=== PATIENT | female | born 1975 | race Caucasian/White ===

== ENCOUNTER 2019-07-15 15:10 | Outpatient (RCR) | payer OTHER, SELFPAY ==
--- NOTE | 2019-07-15 16:12 | PTOPEVAL ---
PHYSICAL THERAPY EVALUATION AND PLAN OF CARE Thank you for referring Jenniffer Cotto to [facility]. I recommend physical therapy for right shoulder pain and education for HEP 1x/week for 3 weeks. Please review, sign, date and return this plan of care KATY. I agree with and certify that the following plan of care is medically necessary. Referring Physician Date Attending Provider: SHELL,GIOVANNY CASINO SURVEILLANCE OFFICER Evaluation Outpatient Past Medical History Neurological History Hx Other Neurological Disorders Yes: neuropathy Cardiovascular History Hx Hypertension Yes Diagnosis right shoulder pain Onset 04/2019 Subjective Information jenniffer reports chronic pain in Query Text:As Reported By Patient/ her right shoulder from Family April 2019. She was standing and leaning over to reach into a cabinet and she started to fall and she grabbed the oven door and fell onto her right shoulder. The paramedics came but she refused to go to the hospital with them. She went to the hospital later that night and it was determined she had a sprained shoulder. After some time she continued to experience pain in the shoulder her MD sent her to PT . Reaching overhead is painful and she cannot lie on her right side due to pain. She cannot carry anything heavy in her right arm, even a 5lb potato bag. States she cannot get up from a lying down position without significant pain the right shoulder. Self Report Pain Assessment Right Shoulder(s) Reported Pain Level 0 Lowest Pain Intensity 0 Greatest Pain Intensity 8 Interventions Used By Clinicians Heat,Ice Pain Score Pain Score 0: Self Report Additional Pain Score Comments reports that she has no pain when at rest, but when she tries to reach overhead it is a 10/10 but she will not go to the emergency room because she has already been and there is nothing to be done Cervical and Lumbar ROM Cervical ROM Reason Not Measured
--- NOTE | 2019-07-20 15:53 | PCPTNOTE ---
Patient did not show up for scheduled appointment this date.
--- NOTE | 2019-07-27 16:01 | PCPTNOTE ---
Patient did not show up for scheduled appointment this date.
--- NOTE | 2019-08-03 15:53 | PCPTNOTE ---
Admitting Provider: Attending Provider: GIOVANNY GOFF, CATALINO Patient:Suma Cotto Date of :1975 Patient has not returned for any further treatments since 07/15/2019, therefore (he/she) will be discharged at this time. Patient?s initial visit was on 07/15/2019 15:15 and (he/she) had a total of visits. The goals have been (met, not met, partially met). Thank you for referring this patient to [facility]. Please review, sign, date and return this discharge summary KATY. I have been updated about the patient's current status and I agree with discharge from the above service at this time. Referring Physician Date
--- NOTE | 2019-08-03 15:53 | PCPTNOTE ---
Patient did not show up for scheduled appointment this date.
--- NOTE | 2019-08-03 15:53 | PCPTNOTE ---
PHYSICAL THERAPY DISCHARGE NOTE Attending Provider: GIOVANNY GOFF, CORPORATE COMPLIANCE OFFICER Patient:Suma Cotto Date of :1975 Patient has not returned for any further treatments since 07/15/2019, therefore she will be discharged at this time. Patient?s initial visit was on 07/15/2019 and had a total of 0 treatment visits. Suma was provided with a home exercise program at her initial evaluation. The goals have not been assessed as she has not returned for follow-up appointments. Thank you for referring this patient to [facility]. Please review, sign, date and return this discharge summary KATY. I have been updated about the patient's current status and I agree with discharge from the above service at this time. Referring Physician Date
== END 2019-08-04 09:21 | disposition home or self-care (01) ==
LOC: ANHPT 15:10
PROVIDERS: PCP Nurse Practitioner Family; Visit Provider Nurse Practitioner Family
DX: G89.29 Other chronic pain (principal); M25.511 Pain in right shoulder
CPT/HCPCS: 97161

== ENCOUNTER 2019-09-20 15:40 | Emergency (ER) | payer OTHER, SELFPAY ==
[2019-09-20 15:51] VITALS: BP 151/87; PULSE 90; RESP 16; TEMP 36.9; O2SAT 97
[2019-09-20 17:07] LABS: Add Urine Microscopic? YES; Appearance Urine Cloudy (Clear); Bacteria Urine 2+ /hpf; Bilirubin Urine Negative (Negative); Blood Urine 2+ (Negative); Color Urine Yellow (Yellow); Glucose Urine UA Negative (Negative); Ketones Urine Negative (Negative); Leukocyte Esterase Ur 3+ LEU/UL (Negative); Mucus Urine Rare /lpf; Nitrate Urine Positive (Negative); Protein Urine 1+ mg/dL (Negative); Specific Grav Ur 1.013 (1.001-1.035); Squamous Epithelial Cell Urine Occasional /hpf (Few); Urobilinogen Urine Negative mg/dL (<2.0); WBC Clumps Urine Present /HPF; WBC Urine >75 /hpf
--- NOTE | 2019-09-20 18:08 | ED.FEMALEGU ---
HPI - Female Genitourinary General Chief complaint: Urogenital-Female Stated complaint: frequent urination, something bulging Time Seen by Provider: 09/20/19 16:13 Source: patient Mode of arrival: ambulatory Limitations: no limitations History of Present Illness HPI Narrative: Patient presents to the emergency department for dysuria since this morning. Reports frequency and urgency. Reports history of prolapse for which she has seen a doctor over in [place] in the past. Reports she feels a bulge in her vagina again. Denies fever, abdominal pain, vomiting, or flank pain. Related Data Home Medications Medication Instructions Recorded Confirmed lisinopril 10 mg PO DAILY 02/19/19 Allergies Allergy/AdvReac Type Severity Reaction Status Date / Time codeine AdvReac Mild N/V Verified 09/20/19 15:50 hydrocodone AdvReac Unknown Nausea Verified 09/20/19 15:50 NSAIDS (Non-Steroidal AdvReac Unknown Nausea Verified 09/20/19 15:50 Anti-Inflamma CORTICOSTEROIDS AdvReac Unknown NAUSEA AND Uncoded 09/20/19 15:50 VOMITING Review of Systems Review of Systems: Narrative: CONSTITUTIONAL: Denies fever GASTROINTESTINAL: Denies abdominal pain, nausea, vomiting GENITOURINARY: Reports dysuria. Denies hematuria. All systems reviewed & are unremarkable except as noted in HPI and below PMFSH Social History Social History Smoking status: Never smoker Gender identity (if verbalized by the patient): Female Exam Narrative: Exam Narrative: GENERAL: Well-appearing, well-nourished, and in no acute distress. HEAD: Normocephalic, atraumatic. EYES: EOMI. CHEST: Clear to auscultation. No respiratory distress. No wheezes rales or rhonchi HEART: Regular rate and rhythm. No murmur heard. Normal peripheral pulses. ABDOMEN: Soft, nontender, nondistended, normal active bowel sounds. EXTREMITIES: Normal range of motion. No edema. SKIN: Warm, dry, no rash. NEURO: No focal deficits. Alert and oriented x3. PSYCH: Normal mood and affect PELVIC: Normal external genitalia. Mild bladder prolapse Course Vital Signs Vital signs: Vital Signs Temperature 98.4 F 09/20/19 15:51 Pulse Rate 90 09/20/19 15:51 Respiratory Rate 16 09/20/19 15:51 Blood Pressure 151/87 H 09/20/19 15:51 Pulse Oximetry 97 09/20/19 15:51 Temperature 98.4 F 09/20/19 15:51 Pulse Rate 90 09/20/19 15:51 Respiratory Rate 16 09/20/19 15:51 Blood Pressure 151/87 H 09/20/19 15:51 Pulse Oximetry 97 09/20/19 15:51 MDM - Female Genitourinary MDM Narrative Medical decision making narrative: Patient presents the emergency department for dysuria. She is afebrile and nontoxic-appearing. Denies any flank pain, abdominal pain or vomiting. UA with evidence of probable urinary tract infection. Patient will be started on oral antibiotic. Patient also reporting history of prolapse and that she started to have feelings of bulging again. Mild bladder prolapse on exam. Patient will be given urology for follow-up. Patient is stable and felt appropriate further outpatient evaluation. She was given warnings to return to the ER Lab Data Attestation: I reviewed the patient's lab results. Labs: Lab Results 09/20/19 Range/Units 16:58 Urine Color Yellow (Yellow) Urine Appearance Cloudy H (Clear) Urine pH 6.0 (5.0-9.0) Ur Specific [place] 1.013 (1.001-1.035) Urine Protein 1+ H (Negative) mg/dL Urine Glucose (UA) Negative (Negative) mg/dL Urine Ketones Negative (Negative) mg/dL Ur Blood (Man) 2+ H (Negative) Urine Nitrate Positive H (Negative) Urine Bilirubin Negative (Negative) Urine Urobilinogen Negative (<2.0) mg/dL Leukocyte Esterase Rfl 3+ H (Negative) CHIKIS/UL Urine RBC 11-20 H (0-2) /hpf Urine WBC >75 H /hpf Urine WBC Clumps Present H (None) /HPF Ur Squamous Epith Cells Occasional (Few) /hpf Urine Bacteria 2+ H /hpf Urine Mucus Rare /lpf
== END 2019-09-20 18:26 | disposition home or self-care (01) ==
PROVIDERS: Physician Assistant; Emergency Provider Emergency Medicine; PCP Nurse Practitioner Family
DX: N81.10 Cystocele, unspecified (principal); N30.00 Acute cystitis without hematuria
CPT/HCPCS: 81001; 87077; 87086; 87088; 87186; 99284

== ENCOUNTER 2019-10-26 14:13 | Emergency (ER) | payer OTHER, SELFPAY ==
[2019-10-26 14:36] VITALS: BP 137/88; PULSE 87; RESP 21; TEMP 37.2; O2SAT 97
[2019-10-26 14:42] VITALS: BP 125/83; PULSE 79; RESP 25; O2SAT 97
[2019-10-26 15:27] VITALS: BP 118/75; PULSE 84; RESP 20; O2SAT 99
--- NOTE | 2019-10-26 15:31 | ED.GENADULT ---
HPI - General Adult General Chief complaint: Wound/Laceration <Sushil Tello PA-C - Last Filed: 10/26/19 15:36> Stated complaint: rectal pain <KIRBY Mansfield Last Filed: 10/26/19 15:36> Time Seen by Provider: 10/26/19 14:27 <Sushil Tello PA-C - Last Filed: 10/26/19 15:36> Source: patient and family <KIRBY Mansfield Last Filed: 10/26/19 15:36> Mode of arrival: ambulatory <Sushil Tello PA-C - Last Filed: 10/26/19 15:36> Limitations: no limitations <Sushil Tello PA-C - Last Filed: 10/26/19 15:36> History of Present Illness HPI narrative: Patient is a 44-year-old female who presents to emergency department for evaluation of swelling of the rectum with some mild irritation and pain. Also notes some mild discomfort to the left ear but denies other URI symptoms. Denies similar occurrence in the past. Has not taken anything for her symptoms and presents in no distress <Sushil Tello PA-C - Last Filed: 10/26/19 15:36> Related Data Home medications: Home Medications Medication Instructions Recorded Confirmed lisinopril 10 mg PO DAILY 02/19/19 <Sushil Tello PA-C - Last Filed: 10/26/19 15:36> Allergies/adverse reactions: Allergies Allergy/AdvReac Type Severity Reaction Status Date / Time codeine AdvReac Mild N/V Verified 10/26/19 14:41 hydrocodone AdvReac Unknown Nausea Verified 10/26/19 14:41 NSAIDS (Non-Steroidal AdvReac Unknown Nausea Verified 10/26/19 14:41 Anti-Inflamma CORTICOSTEROIDS AdvReac Unknown NAUSEA AND Uncoded 10/26/19 14:41 VOMITING <Sushil Tello PA-C - Last Filed: 10/26/19 15:36> Review of Systems Review of Systems: All systems reviewed & are unremarkable except as noted in HPI and below <Sushil Tello PA-C - Last Filed: 10/26/19 15:36> PMFSH Past Medical History Medical History: Medical History Abnormal uterine bleeding DDD (degenerative disc disease) L-Spine Fibroid Hypertension Kidney failure Migraine <Sushil Tello PA-C - Last Filed: 10/26/19 15:36> Surgical History Surgical History: Surgical History H/O tubal ligation History of History of hysterectomy <Sushil Tello PA-C - Last Filed: 10/26/19 15:36> Social History Social History: Social History Smoking status: Never smoker Gender identity (if verbalized by the patient): Female Sexual Orientation (if Verbalized by the Patient): Straight or Heterosexual <Sushil Tello PA-C - Last Filed: 10/26/19 15:36> Exam Narrative: Exam Narrative: GENERAL: Well-appearing, well-nourished, and in no acute distress. HEAD: Normocephalic, atraumatic. EYES: PERRLA and EOMI. ENT: Nares clear, no rhinorrhea or epistaxis. Mucous membranes moist. Oropharynx without tonsillar hypertrophy exudate or other lesions. Bilateral TMs nonerythematous nonbulging NECK: Supple. No adenopathy or masses. CHEST: Clear to auscultation. No respiratory distress. No wheezes rales or rhonchi HEART: Regular rate and rhythm. No murmur heard. Normal peripheral pulses. ABDOMEN: Soft, nontender, nondistended EXTREMITIES: Normal range of motion. No edema. SKIN: Warm, dry, no rash. Small hemorrhoid at 12:00 no other abnormalities NEURO: No focal deficits. Alert and oriented x3. PSYCH: Normal mood and affect. <Sushil Tello PA-C - Last Filed: 10/26/19 15:36> Course Course Emergency Course: Patient in the room in no distress aware of case findings treatment plan and diagnosis <Sushil Tello PA-C - Last Filed: 10/26/19 15:36> Vital Signs Vital signs: Vital Signs Temperature 98.9 F 10/26/19 14:36 Pulse Rate 87 10/26/19 14:36 Respiratory Rate 21 H 10/26/19 14:36 Blood Pressure 137/88 10/26/19 14:36 Pulse O
[2019-10-26 16:14] VITALS: BP 118/75; PULSE 70; RESP 22; O2SAT 97
== END 2019-10-26 16:16 | disposition home or self-care (01) ==
PROVIDERS: Emergency Provider Emergency Medicine; PCP Physician Assistant
DX: K64.9 Unspecified hemorrhoids (principal); H92.02 Otalgia, left ear; I10 Essential (primary) hypertension; N19 Unspecified kidney failure
CPT/HCPCS: 99283

== ENCOUNTER 2019-12-02 22:55 | Emergency (ER) | payer OTHER, SELFPAY ==
--- NOTE | ~2019-12-02 | CT_ITS ---
EXAMINATION: CTA chest PE protocol DATE: 12/03/2019 04:12 INDICATION: Chest pain and shortness of breath TECHNIQUE: Computed tomography angiography (CTA) of the chest was performed with 100 mL Omnipaque-350 intravenous contrast timed to evaluate the pulmonary arteries. Coronal maximum intensity projection 3D-reconstructions were created by the technologist. The dose-length product (DLP) was 510.51 mGy-cm. Automated exposure control and iterative reconstruction technique were employed. COMPARISON: None. FINDINGS: The pulmonary arteries are well-opacified. No pulmonary embolism is identified. The lungs a re free of acute opacities. There is no pleural effusion or pneumothorax. No pathologically enlarged thoracic lymph nodes are identified. The heart size is normal. IMPRESSION: 1. No pulmonary embolism or acute cardiopulmonary abnormality. Reviewed, dictated and finalized at location A.
--- NOTE | ~2019-12-02 | XR_ITS ---
EXAMINATION: XR chest 1V portable INDICATION: Shortness of breath TECHNIQUE: Portable AP chest at 0132 hours COMPARISON: 04/25/2019 FINDINGS: The lungs are free of acute opacities. There is no pleural effusion or pneumothorax. The ca rdiomediastinal silhouette is normal. The visualized bones and soft tissues are unremarkable. IMPRESSION: 1. No acute cardiopulmonary abnormality. Reviewed, dictated and finalized at location A.
[2019-12-02 23:26] VITALS: BP 120/67; PULSE 65; RESP 20; TEMP 36.1; O2SAT 100
--- NOTE | 2019-12-03 01:07 | ECG_ITS ---
Measurements Intervals [place] Rate: 57 P: 13 [place]: 160 QRS: -7 QRSD: 97 T: -1 QT: 434 QTc: 423 Interpretive Statements SINUS BRADYCARDIA BORDERLINE ST-T WAVE ABNORMALITY- INF/HIGH LAT LEADS BASELINE ARTIFACT- I, III, AVF, V3 BORDERLINE ECG Electronically Signed On 12-03-2019 12:25:06 CDT by Benjamín Kolb D.O.
--- NOTE | 2019-12-03 01:07 | ED.GENADULT ---
HPI - General Adult General Chief complaint: Unspecified Stated complaint: worsening lower back pain, short of breath Time Seen by Provider: 12/03/19 00:52 Source: patient Mode of arrival: ambulatory Limitations: no limitations History of Present Illness HPI narrative: This patient is a 44 year old female who presents for evaluation of chest pain and palpitations. She states she has been having lower back pain for several days. She was evaluated at [place] [facility] 2 days ago, and she was started on steroids. She reports after starting steroid taper, she developed palpitations and left chest pain. She reports she feels like her heart is pounding and beating fast. She is having difficulty sleeping as well. She continues to have lower back pain that radiates to leg. Related Data Home Medications Medication Instructions Recorded Confirmed lisinopril 10 mg PO DAILY 02/19/19 Allergies Allergy/AdvReac Type Severity Reaction Status Date / Time codeine AdvReac Mild N/V Verified 10/26/19 14:41 hydrocodone AdvReac Unknown Nausea Verified 10/26/19 14:41 NSAIDS (Non-Steroidal AdvReac Unknown Nausea Verified 10/26/19 14:41 Anti-Inflamma CORTICOSTEROIDS AdvReac Unknown NAUSEA AND Uncoded 10/26/19 14:41 VOMITING Review of Systems Review of Systems: All systems reviewed & are unremarkable except as noted in HPI and below Constitutional: Constitutional: Denies chills and Denies fever(s) Cardiovascular: Cardiovascular: Reports chest pain and Reports rapid heart rate Respiratory: Respiratory: Denies cough, Reports dyspnea and Reports wheezing PMFSH Past Medical History Medical History Abnormal uterine bleeding DDD (degenerative disc disease) L-Spine Fibroid Hypertension Kidney failure Migraine Surgical History Surgical History H/O tubal ligation History of History of hysterectomy Social History Social History Smoking status: Never smoker Gender identity (if verbalized by the patient): Female Exam Narrative: Exam Narrative: GENERAL: Well-appearing, well-nourished, and in no acute distress. HEAD: Normocephalic, atraumatic EYES: PERRLA and EOMI, conjunctiva clear without discharge EARS: TM's clear bilaterally without erythema or dullness NOSE: Nares clear, no rhinorrhea or epistaxis THROAT:Mucous membranes moist, Oropharynx normal without erythema, exudate, peritonsillar swelling or fluctuance NECK: Supple, without lymphadenopathy or mass RESPIRATORY: No respiratory distress, Airway patent, Respirations non-labored, Clear to auscultation without rales, rhonchi or wheeze HEART: Regular rate and rhythm. No murmur heard. Normal peripheral pulses. ABDOMEN: Soft, nontender, nondistended, normal active bowel sounds. No masses. No rebound or guarding, No organomegaly. EXTREMITIES: No edema, normal strength with full range of motion. SKIN: Warm, dry, normal color without rash NEURO: Alert and oriented x3. CN 2-12 grossly intact. No focal deficits. PSYCH: Normal mood and affect. Course Reevaluation(s) Reevaluation #1: I Discussed with patient plan to perform CT to rule out PE. She denies any back or abdominal pain currently. Date: 12/03/19 Time: 03:30 Reevaluation #2: PAtient's symptoms are likely relate to her taking steroids. She will stop taking. Date: 12/03/19 Time: 04:41 Vital Signs Vital signs: Vital Signs Temperature 96.9 F L 12/02/19 23:26 Pulse Rate 65 12/02/19 23:26 Respiratory Rate 12/02/19 23:26 Blood Pressure 120/67 12/02/19 23:26 Pulse Oximetry 100 12/02/19 23:26 Temperature 98.2 F 12/03/19 04:54 Pulse Rate 89 12/03/19 04:54 Respiratory Rate 12/03/19 04:54 Blood Pressure 138/86 12/03/19 04:54 Pulse Oximetry 100 12/03/19 04:54 Medical Decision Making
[2019-12-03 02:13] LABS: Basophils Percent Auto 0.3 % (0.2-1.2); Eosinophils Absolute Auto 0.1 K/mm3 (0-0.3); Eosinophils Percent Auto 0.5 % (0-4.4); Hematocrit 41.7 % (37.0-47.0); Hemoglobin 13.9 g/dL (12.0-15.0); Immature Granulocyte Percent A 0.7 % (0-0.5); Lymphocytes Absolute Auto 5.68 K/mm3 (0.9-3.2); Lymphocytes Percent Auto 38.5 % (18.3-44.2); Mean Corpuscular HGB Conc 33.3 g/dl (32-36); Mean Corpuscular Hemoglobin 31.8 pg (26-34); Mean Corpuscular Volume 95.4 fl (80-100); Mean Platelet Volume 10.1 fl (7.4-10.4); Monocytes Absolute Auto 1.2 K/mm3 (0.1-0.6); Monocytes Percent Auto 7.9 % (2.6-8.5); Neutrophils Absolute Auto 7.7 K/mm3 (1.3-6.7); Neutrophils Percent Auto 52.1 % (45.5-73.1); Platelet Count Result 251 k/mm3 (150-375); Red Blood Count 4.37 M/mm3 (4.2-5.4); White Blood Count 14.8 K/mm3 (4.5-10.0)
[2019-12-03 02:23] LABS: Prothrombin Time 13.3 Seconds (11.1-14.7)
[2019-12-03 02:24] LABS: Partial Thromboplastin Time 27.6 SECONDS (22.3-36.8)
[2019-12-03 02:24] LABS: Alanine Aminotransferase 12 U/L (4-35); Albumin Level 3.7 g/dL (3.5-5.1); Alkaline Phosphatase 77 U/L (38-126); Anion Gap 7 mmol/L (8-16); Aspartate Amino Transferase 18 U/L (14-36); Bilirubin,Total 0.2 mg/dL (0.2-1.3); Blood Urea Nitrogen 22 mg/dL (7-17); Calcium 8.7 mg/dL (8.4-10.2); Carbon Dioxide 28 mmol/L (22-30); Chloride 105 mmol/L (98-107); Estimated CRCL calculation 59 ml/min; Estimated Glomerular Filt Rate 54; Glucose 107 mg/dL (65-105); Potassium 3.7 mmol/L (3.4-5.0); Sodium 140 mmol/L (137-145)
[2019-12-03 02:26] LABS: D Dimer 1.22 ug/mL (<0.48)
[2019-12-03 02:35] LABS: Troponin I < 0.012 ng/mL (0.000-0.034)
[2019-12-03 03:09] LABS: Add Urine Microscopic? NO; Appearance Urine Clear (Clear); Bilirubin Urine Negative (Negative); Blood Urine Negative (Negative); Color Urine Straw (Yellow); Glucose Urine UA Negative (Negative); Ketones Urine Negative (Negative); Leukocyte Esterase Ur Negative LEU/UL (Negative); Nitrate Urine Negative (Negative); Protein Urine Negative (Negative); Specific Grav Ur 1.011 (1.001-1.035); Urobilinogen Urine Negative mg/dL (<2.0)
[2019-12-03 03:17] VITALS: BP 135/88; PULSE 78; RESP 16; O2SAT 98
[2019-12-03 04:54] VITALS: BP 138/86; PULSE 89; RESP 20; TEMP 36.8; O2SAT 100
== END 2019-12-03 04:55 | disposition home or self-care (01) ==
PROVIDERS: Emergency Provider General Practice; PCP Family Medicine
DX: R07.89 Other chest pain (principal); R00.2 Palpitations; I10 Essential (primary) hypertension; R00.1 Bradycardia, unspecified; R94.31 Abnormal electrocardiogram [ECG] [EKG]
CPT/HCPCS: 36415; 71045; 71275; 80053; 81003; 83735; 84484; 85025; 85380; 85610; 85730; 93005; 99284; Q9967

== ENCOUNTER 2019-12-24 15:51 | Outpatient (CLI) | payer OTHER, SELFPAY ==
--- NOTE | ~2019-12-24 | XR_ITS ---
XR knee RT 3V 12/24/2019 16:26 Indication: Burning sensation the right knee Procedure: 3 views right knee Comparison: 02/25/2019 Findings: No fracture, subluxation or dislocation. No significant joint space narrowing. No joint eff usion. Impression: 1: No significant bone or joint abnormality. Reviewed, dictated and finalized at location A. Impression: 1: No significant bone or joint abnormality.
--- NOTE | ~2019-12-24 | XR_ITS ---
EXAMINATION: XR elbow RT min 3V DATE: 12/24/2019 16:25 INDICATION: Right elbow pain TECHNIQUE: Anteroposterior, two oblique and lateral views of the right elbow were obtained. COMPARISON: 11/22/2017 FINDINGS: Alignment is normal. No fracture or joint effusion. Joint spaces are normal. Soft tissues a re unremarkable. IMPRESSION: 1. No acute osseous abnormality. Reviewed, dictated and finalized at location A.
== END 2019-12-24 15:52 | disposition home or self-care (01) ==
PROVIDERS: PCP Family Medicine; Visit Provider Family Medicine
DX: M25.561 Pain in right knee (principal); M25.521 Pain in right elbow
CPT/HCPCS: 73080; 73562

== ENCOUNTER 2020-05-18 11:37 | Emergency (ER) | payer OTHER, SELFPAY ==
--- NOTE | ~2020-05-18 | XR_ITS ---
EXAMINATION: XR finger 1st RT min 2V DATE: 05/18/2020 12:32 INDICATION: Pain at the distal interphalangeal joint of the right thumb TECHNIQUE: Dorsal palmar, lateral and oblique views of the right first digit were obtained COMPARISON: None FINDINGS: Alignment is normal. No fracture. Joint spaces are relatively preserved. No erosions. Soft tissues ar e unremarkable. IMPRESSION: 1. Negative right thumb radiographs. Reviewed, dictated and finalized at location A. HEALTH ADMINISTRATOR
[2020-05-18 11:41] VITALS: BP 131/85; PULSE 101; RESP 18; TEMP 36.2; O2SAT 100
--- NOTE | 2020-05-18 13:07 | ED.UPPEXIN ---
HPI - Extremity Injury (Upper) General Chief Complaint: Extremity Injury, Upper Stated Complaint: finger injury Time Seen by Provider: 05/18/20 11:40 History of Present Illness HPI narrative: Patient is a 44-year-old female who presents to the ER with right thumb pain. Patient was by the shower when she slipped and fell. She got her hand crushed between the wall and the door of the shower. She has throbbing and burning pain to the finger and difficulty with range of motion of the DIP of the right first digit. Did not strike her head or lose consciousness. Related Data Home Medications Medication Instructions Recorded Confirmed lisinopril 10 mg PO DAILY 02/19/19 Allergies Allergy/AdvReac Type Severity Reaction Status Date / Time codeine AdvReac Mild N/V Verified 05/18/20 11:44 hydrocodone AdvReac Unknown Nausea Verified 05/18/20 11:44 NSAIDS (Non-Steroidal AdvReac Unknown Nausea Verified 05/18/20 11:44 Anti-Inflamma CORTICOSTEROIDS AdvReac Unknown NAUSEA AND Uncoded 10/26/19 14:41 VOMITING Review of Systems Musculoskeletal: Musculoskeletal: Denies back pain, Reports arthralgias and Denies joint swelling Neurologic: Denies focal weakness and Denies numbness PMFSH Past Medical History Medical History (Updated 05/18/20 @ 13:15 by Alberto Cary MD) Abnormal uterine bleeding DDD (degenerative disc disease) L-Spine Fibroid Hypertension Kidney failure Migraine Surgical History Surgical History H/O tubal ligation History of History of hysterectomy Social History Social History Smoking status: Never smoker Gender identity (if verbalized by the patient): Female Exam Narrative: Exam Narrative: GENERAL: Well-appearing, well-nourished, and in no acute distress. HEAD: Normocephalic, atraumatic. EXTREMITIES: Exam of the right hand reveals tenderness at the right first digit DIP. No swelling or bruising. Limited range of motion due to pain but flexion extension at that joint are intact. SKIN: Warm, dry, no rash. NEURO: Alert and oriented x3. PSYCH: Normal mood and affect. Course Vital Signs Vital signs: Vital Signs Temperature 97.2 F L 05/18/20 11:41 Pulse Rate 101 H 05/18/20 11:41 Respiratory Rate 18 05/18/20 11:41 Blood Pressure 131/85 05/18/20 11:41 Pulse Oximetry 100 05/18/20 11:41 Temperature 97.2 F L 05/18/20 11:41 Pulse Rate 101 H 05/18/20 11:41 Respiratory Rate 18 05/18/20 11:41 Blood Pressure 131/85 05/18/20 11:41 Pulse Oximetry 100 05/18/20 11:41 MDM - Extremity Injury (Upper) Imaging Data Radiologist's impression: ITS Impressions Finger X-Ray 05/18/20 12:36 IMPRESSION: 1. Negative right thumb radiographs. Discharge Plan Discharge Clinical Impression: Finger sprain Patient Disposition: Home, Self-Care Condition: Stable Instructions: Finger Sprain (ED) Additional Instructions: Return the ER if you have increased pain, you have new injury, or you have other concerns. Take Tylenol or ibuprofen as needed for pain at home. Prescriptions: No Action lisinopril 10 mg tablet 10 mg PO DAILY RF: 0 nitrofurantoin monohyd/m-cryst [Macrobid] 100 mg capsule 100 mg PO Q12H 5 Days Qty: 10 RF: 0 hydrocortisone acetate [Anusol-HC] 25 mg suppository 25 mg RECTAL BID Qty: 1 RF: 0 loratadine [Claritin] 10 mg tablet 10 mg PO DAILY PRN (Reason: allergy symptoms) Qty: 10 RF: 0 Follow-up/Referrals: Anayeli,Priyanka Bravo MD [Primary Care Provider] - 1 Week
== END 2020-05-18 13:43 | disposition home or self-care (01) ==
PROVIDERS: Emergency Provider Emergency Medicine; PCP Family Medicine
DX: S63.601A Unspecified sprain of right thumb, initial encounter (principal); I10 Essential (primary) hypertension; N19 Unspecified kidney failure; W18.2XXA Fall in (into) shower or empty bathtub, initial encounter
CPT/HCPCS: 73140; 99283

== ENCOUNTER 2020-05-27 14:44 | Emergency (ER) | payer OTHER, SELFPAY ==
--- NOTE | ~2020-05-27 | XR_ITS ---
EXAMINATION: XR scapula RT EXAM DATE: 05/27/2020 15:30 INDICATION: Pain to rt scapula after sneezing hit a dresser. Initial encounter. TECHNIQUE: Frontal and lateral projections of the right scapula Comparison is made to prior examinat ion from 04/25/2019. FINDINGS: There are no acute right scapula fractures or dislocations identified. There is no subcuta neous gas. The soft tissue is unremarkable. There are no radiopaque foreign bodies. IMPRESSION: 1. XR scapula RT exam without acute osseous findings. Reviewed, dictated and finalized at location B. TESTER
--- NOTE | 2020-05-27 15:18 | ED.GENADULT ---
HPI - General Adult General Chief complaint: Extremity Injury, Upper Stated complaint: Shoulder Pain Time Seen by Provider: 05/27/20 15:02 Source: patient and RN notes reviewed Mode of arrival: wheelchair Limitations: no limitations History of Present Illness HPI narrative: Patient presents today complaining of right shoulder pain. States she sneezed at home, lost her balance and fell backwards striking the back of her head and shoulder on a dresser before falling to the floor 2 days ago. Denies loss of consciousness at time of injury. Denies dizziness or vision changes. Denies numbness or tingling in the arm or hand. She currently rates her shoulder pain 9/10 and has been using Tylenol and icy hot without relief. Pain increases when she tries to lie down. States pain is worse today. She presents today requesting x-rays of her shoulder and prescription for pain medication. MD complaint: Right shoulder pain Related Data Home Medications Medication Instructions Recorded Confirmed lisinopril 10 mg PO DAILY 02/19/19 Allergies Allergy/AdvReac Type Severity Reaction Status Date / Time codeine AdvReac Mild N/V Verified 05/18/20 11:44 hydrocodone AdvReac Unknown Nausea Verified 05/18/20 11:44 NSAIDS (Non-Steroidal AdvReac Unknown Nausea Verified 05/18/20 11:44 Anti-Inflamma CORTICOSTEROIDS AdvReac Unknown NAUSEA AND Uncoded 10/26/19 14:41 VOMITING Review of Systems Review of Systems: Narrative: CONSTITUTIONAL: Denies body aches, fever, chills, or sweats. EYES: Denies visual changes, redness, or discharge. ENT: Denies rhinorrhea, congestion, sore throat, or otalgia. CARDIOVASCULAR: Denies chest pain, palpitations, or edema. RESPIRATORY: Denies cough or dyspnea. GASTROINTESTINAL: Denies abdominal pain, nausea, vomiting, or diarrhea. GENITOURINARY: Denies dysuria or hematuria. SKIN: Denies rash, itching, or wounds. MUSCULOSKELETAL: Denies back pain, or myalgia. + Right shoulder pain NEUROLOGIC: Denies headache, numbness, tingling, or weakness. PSYCH: Denies depression or anxiety. [facility] Past Medical History Medical History (Updated 05/27/20 @ 15:52 by Mena Oliver, TUBE SPLICER, BC) Abnormal uterine bleeding DDD (degenerative disc disease) L-Spine Fibroid Hypertension Kidney failure Migraine Surgical History Surgical History H/O tubal ligation History of History of hysterectomy Social History Social History Smoking status: Never smoker Gender identity (if verbalized by the patient): Female Comments At time of signature, I have reviewed and agree with nursing past medical, surgical, social and family history unless otherwise noted. Please see nursing chart for further information. There is no relevant family history pertinent to the presenting complaint Exam Narrative: Exam Narrative: GENERAL: Well-appearing, well-nourished, and in no acute distress. HEAD: Normocephalic, atraumatic. EYES: EOMI. No redness or drainage. Conjunctivae normal. ENT: Mucous membranes pink and moist. NECK: Normal AROM. Supple. No lymphadenopathy. Neck is nontender. CHEST: No respiratory distress. MUSCULOSKELETAL: No bony tenderness of the spine. Patient has right upper thoracic paraspinal/trapezius muscle tenderness. Patient has full range of motion of her right shoulder with increased pain to this affected area. No crepitus noted. No edema noted. Distal sensation intact. Capillary refill normal. Radial pulse normal. Handgrips equal and strong. No tenderness to the anterior or lateral shoulder. EXTREMITIES: Normal range of motion. No edema. SKIN: Warm, dry, no rash. Capillary refill normal. Normal skin turgor. NEURO: No focal deficits. Alert and oriented x3. Gait steady. PSYCH: Normal affect. No signs of depression or anxiety. Course Vital Signs Vital signs: Vital Signs Temper
[2020-05-27 15:39] VITALS: BP 131/75; PULSE 86; RESP 16; TEMP 36.5; O2SAT 100
== END 2020-05-27 15:55 | disposition home or self-care (01) ==
PROVIDERS: Emergency Provider Nurse Practitioner; PCP Family Medicine
DX: S46.811A Strain of other muscles, fascia and tendons at shoulder and upper arm level, right arm, initial encounter (principal); W19.XXXA Unspecified fall, initial encounter; M51.36 Other intervertebral disc degeneration, lumbar region; I10 Essential (primary) hypertension
CPT/HCPCS: 73010; 99213; G0463

== ENCOUNTER 2020-08-02 09:49 | Outpatient (CLI) | payer OTHER, SELFPAY ==
--- NOTE | ~2020-08-02 | XR_ITS ---
EXAMINATION: XR elbow RT min 3V DATE: 08/02/2020 10:13 INDICATION: Right elbow pain TECHNIQUE: Anteroposterior, two oblique and lateral views of the right elbow were obtained. COMPARISON: 12/24/2019 FINDINGS: Alignment is normal. No fracture or joint effusion. Mild nonuniform joint space narrowing at the ulno trochlear articulation with tiny marginal osteophytes. Soft tissues are unremarkable. IMPRESSION: 1. 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 Reviewed, dictated and finalized at location A.
== END 2020-08-02 09:50 | disposition home or self-care (01) ==
LOC: ANHIMG 09:51
PROVIDERS: PCP Family Medicine; Visit Provider Family Medicine
DX: M19.021 Primary osteoarthritis, right elbow (principal)
CPT/HCPCS: 73080

== ENCOUNTER 2020-09-10 15:42 | Emergency (ER) | payer OTHER, SELFPAY ==
[2020-09-10] VITALS (7 sets, daily range): BP systolic 105–127; BP diastolic 66–91; PULSE 80–104; RESP 18–25; TEMP 36.6; O2SAT 98–100
--- NOTE | ~2020-09-10 | CT_ITS ---
EXAMINATION: CT brain wo con DATE: 09/10/2020 18:33 INDICATION: Dizziness TECHNIQUE: Computed tomography (CT) of the head was performed without intravenous contrast. Sagittal and coronal reconstructions were performed. The mA was adjusted according to patient size. Iterative reconstruction technique was employed. The dose-length product was 605.33 mGy-cm. COMPARISON: head CT dated 02/25/2019 FINDINGS: No acute intracranial hemorrhage, acute infarction or abnormal extra axial fluid collection. Ventricl es are normal and symmetric. No mass/mass effect. The orbits, paranasal sinuses and mastoid air cells are normal. IMPRESSION: 1. Normal head CT. Reviewed, dictated and finalized at location A. IMPRESSION: 1. Normal head CT.
--- NOTE | ~2020-09-10 | XR_ITS ---
EXAMINATION: XR chest 2V DATE: 09/10/2020 18:47 INDICATION: Dizziness TECHNIQUE: frontal and lateral views of the chest were obtained. COMPARISON: Chest radiograph dated 12/03/2019 FINDINGS: The lungs remain clear with no focal airspace opacities, pulmonary edema, pleural effusion or pneumot horax. The cardiomediastinal silhouette is normal. Peripheral IV at the base of the left neck. Mild t horacic spondylosis. IMPRESSION: 1. No acute cardiopulmonary disease. Reviewed, dictated and finalized at location A.
--- NOTE | 2020-09-10 15:44 | ECG_ITS ---
Measurements Intervals Carmine Rate: 94 P: 16 MD: 155 QRS: -5 QRSD: 92 T: 18 QT: 348 QTc: 437 Interpretive Statements SINUS RHYTHM VOLTAGE CRITERIA FOR LVH BASELINE ARTIFACT- I, III, AVR, AVL, AVF, V4 BORDERLINE ECG Electronically Signed On 09-10-2020 20:02:55 CDT by Benjamín Kolb D.O.
--- NOTE | 2020-09-10 16:00 | PC.NURSE ---
Attempted blood draw x2 and unsuccessful.
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
[2020-09-10 18:31] LABS: Basophils Absolute Auto 0.1 K/mm3 (0.0-0.1); Basophils Percent Auto 0.4 % (0.2-1.2); Eosinophils Absolute Auto 0.2 K/mm3 (0-0.3); Eosinophils Percent Auto 1.1 % (0-4.4); Hematocrit 40.8 % (37.0-47.0); Hemoglobin 13.6 g/dL (12.0-15.0); Immature Granulocyte Absolute 0.06 K/mm3 (0.00-0.031); Immature Granulocyte Percent A 0.4 % (0-0.5); Lymphocytes Absolute Auto 3.68 K/mm3 (0.9-3.2); Lymphocytes Percent Auto 25.8 % (18.3-44.2); Mean Corpuscular HGB Conc 33.3 g/dl (32-36); Mean Corpuscular Hemoglobin 31.2 pg (26-34); Mean Corpuscular Volume 93.6 fl (80-100); Mean Platelet Volume 9.6 fl (7.4-10.4); Monocytes Absolute Auto 1.1 K/mm3 (0.1-0.6); Monocytes Percent Auto 7.6 % (2.6-8.5); Neutrophils Absolute Auto 9.2 K/mm3 (1.3-6.7); Neutrophils Percent Auto 64.7 % (45.5-73.1); Platelet Count Result 289 k/mm3 (150-375); Red Blood Count 4.36 M/mm3 (4.2-5.4); Red Cell Distribution Width 12.3 % (11.5-14.5); White Blood Count 14.3 K/mm3 (4.5-10.0)
[2020-09-10 18:42] LABS: Anion Gap 9 mmol/L (8-16); Blood Urea Nitrogen 9 mg/dL (7-17); Calcium 9.6 mg/dL (8.4-10.2); Carbon Dioxide 26 mmol/L (22-30); Chloride 107 mmol/L (98-107); Estimated CRCL calculation 65 ml/min; Estimated Glomerular Filt Rate 60; Glucose 103 mg/dL (65-105); Potassium 3.9 mmol/L (3.4-5.0); Sodium 142 mmol/L (137-145)
[2020-09-10 18:43] LABS: Alanine Aminotransferase 17 U/L (4-35); Albumin Level 4.1 g/dL (3.5-5.1); Alkaline Phosphatase 90 U/L (38-126); Anion Gap 9 mmol/L (8-16); Aspartate Amino Transferase 33 U/L (14-36); Bilirubin,Total 0.5 mg/dL (0.2-1.3); Blood Urea Nitrogen 10 mg/dL (7-17); Calcium 9.5 mg/dL (8.4-10.2); Carbon Dioxide 26 mmol/L (22-30); Chloride 107 mmol/L (98-107); Estimated CRCL calculation 72 ml/min; Estimated Glomerular Filt Rate > 60; Glucose 100 mg/dL (65-105); Potassium 4.2 mmol/L (3.4-5.0); Sodium 142 mmol/L (137-145)
[2020-09-10 18:51] LABS: Add Urine Microscopic? NO; Appearance Urine Clear (Clear); Bilirubin Urine Negative (Negative); Blood Urine Negative (Negative); Color Urine Colorless (Yellow); Glucose Urine UA Negative (Negative); Ketones Urine Negative (Negative); Leukocyte Esterase Ur Negative LEU/UL (Negative); Nitrate Urine Negative (Negative); Protein Urine Negative (Negative); Urobilinogen Urine Negative mg/dL (<2.0)
[2020-09-10 18:54] LABS: Troponin I < 0.012 ng/mL (0.000-0.034)
[2020-09-10 18:56] LABS: Specific Grav Ur 1.003 (1.001-1.035)
[2020-09-10 19:25] LABS: Thyroid Stimulating Hormone Reflex 0.718 uIU/mL (0.465-4.68)
[2020-09-10] MEDS: MECLIZINE HCL 25 MG TABLET PO (19:25)
[2020-09-10] MEDS: SODIUM CHLORIDE 0.9% IV 1,000 ML 999 ML IV CONT (19:25)
== END 2020-09-10 21:39 | disposition home or self-care (01) ==
PROVIDERS: Emergency Medicine; Emergency Provider Nurse Practitioner; PCP Family Medicine
DX: R42 Dizziness and giddiness (principal); I10 Essential (primary) hypertension; M51.36 Other intervertebral disc degeneration, lumbar region; R94.31 Abnormal electrocardiogram [ECG] [EKG]
CPT/HCPCS: 36415; 70450; 71046; 80048; 80053; 81003; 84443; 84484; 85025; 93005; 96360; 96361; 99284; A9270; J7030

== ENCOUNTER 2020-09-13 09:30 | Outpatient (RCR) | payer OTHER, SELFPAY ==
--- NOTE | 2020-08-31 10:15 | PTOPEVAL ---
Thank you for referring Suma Arroyo to [facility].? The patient is scheduled to be seen for therapy? 1 x/week for 6 weeks. Please review, sign, date and return this plan of care KATY. I agree with and certify that the following plan of care is medically necessary. Referring Physician Date Attending Provider: Priyanka Trevino, MD Assessment Status Evaluation Outpatient Past Medical History Neurological History Hx Other Neurological Disorders Yes: neuropathy, right LE Cardiovascular History Hx Hypertension Yes Genitourinary History Hx Renal Disease Yes: kidney failure Musculoskeletal History Hx Fibromyalgia Yes Hx Other Musculoskeletal Disorders Yes: stated has weak legs and uses w/c d/t faster to get around Evaluation Information Problem Diagnosis myalgia, neck and extrimity pain Onset 06/2020 Additional Evaluation Detail She was treated for right lateral epicondylitis back in June with 2 injections. Only the 1st injection helped her symptoms. She uses a wc for the past 6 yrs in the community. She uses a cane or walker in the house. She spends most of her day in bed, limited activities. She had a fall 05/22 landing backwards on shoulder/head region. Subjective Information She c/o arm pain and nerve Query Text:As Reported By Patient/ pain. She was given a tennis Family elbow splint, but it did not help. She reports increased pain in the morning or with activities. She has increased pain with reaching, carrying activities, bending the elbow. Any increased activity increase the elbow pain. She has difficulty with ADL's due to pain and limited right UE motion. Reports increased elbow pain with use of cane or walker. She has history of falls. Report numbness and tingling only in the lateral elbow region Diagnostic Tests X-Rays For This Problem Yes: Mild osteoart
--- NOTE | 2020-09-07 13:34 | PCPTNOTE ---
Patient called & cancelled scheduled appointment this date due to not felling well.
--- NOTE | 2020-09-20 11:18 | PCPTNOTE ---
Patient did not show up for scheduled appointment this date. Attempted to call, but pt's phone not accepting calls.
--- NOTE | 2020-10-13 08:11 | PCPTNOTE ---
Admitting Provider: Attending Provider: Priyanka Trevino, Patient:Suma Arroyo Date of :1975 Discharge Note Patient has not returned for any further treatments since 09/13/2020, therefore she will be discharged at this time. Patient?s initial visit was on 08/31/2020 09:00 and she had a total of 2 visits with 2 cancelled/no show visits. The goals have been not met at this time. Thank you for referring this patient to [facility]. Please review, sign, date and return this discharge summary KATY. I have been updated about the patient's current status and I agree with discharge from the above service at this time. Referring Physician Date
== END 2020-10-13 16:46 | disposition home or self-care (01) ==
LOC: ANHPT 09:30
PROVIDERS: PCP Family Medicine; Visit Provider Family Medicine
DX: M79.10 Myalgia, unspecified site (principal)
CPT/HCPCS: 97110; 97140; 97162

== ENCOUNTER 2021-02-14 12:30 | Outpatient (CLI) | payer OTHER, SELFPAY ==
--- NOTE | ~2021-02-14 | MR_ITS ---
EXAMINATION: MR elbow RT wo con DATE: 02/14/2021 13:54 INDICATION: Right elbow pain TECHNIQUE: Magnetic resonance imaging (MRI) of the right elbow was performed without intravenous cont rast. Sequences included coronal, axial, and sagittal PD-weighted FS FSE and coronal, axial, and sagi ttal PD-weighted FSE. COMPARISON: None FINDINGS: Osseous/other: Normal alignment. Normal marrow signal with no marrow edema, fracture, osteochondral lesion or abnor mal marrow replacing process. Mild osteoarthritis with mild partial-thickness cartilage loss resultin g in mild nonuniform joint space narrowing at the ulnotrochlear and proximal radioulnar articulations . No associated degenerative subchondral changes. Small marginal osteophytes along the trochlea. Tendons: Triceps, biceps brachii and brachialis tendons are normal. Common flexor tendon wad is normal. The c ommon extensor tendon wad is normal. Ligaments: The medial and lateral collateral ligament complexes are normal. Cubital tunnel: Cubital tunnel is unremarkable with normal signal and caliber of the ulnar nerve. Fluid: Physiologic amount of fluid the elbow joint. IMPRESSION: 1. 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 Reviewed, dictated and finalized at location A. ONAL GUIDE
== END 2021-02-14 12:31 | disposition home or self-care (01) ==
PROVIDERS: Visit Provider Orthopaedic Surgery
DX: M19.021 Primary osteoarthritis, right elbow (principal)
CPT/HCPCS: 73221

== ENCOUNTER 2021-06-10 18:12 | Emergency (ER) | payer OTHER, SELFPAY ==
--- NOTE | ~2021-06-10 | XR_ITS ---
EXAMINATION: XR ankle LT min 3V DATE: 06/10/2021 18:32 INDICATION: Lateral sided left ankle pain post fall TECHNIQUE: Anteroposterior, oblique, mortise, and lateral views of the left ankle were obtained. COMPARISON: None. FINDINGS: Alignment is normal. No fracture. Joint spaces are well maintained. No ankle joint effusion. The so ft tissues are unremarkable. IMPRESSION: 1. Negative left ankle radiographs. Reviewed, dictated and finalized at location A. 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
--- NOTE | ~2021-06-10 | XR_ITS ---
EXAMINATION: XR elbow RT min 3V DATE: 06/10/2021 18:33 INDICATION: Posterior right elbow pain post fall TECHNIQUE: Anteroposterior, two oblique and lateral views of the right elbow were obtained. COMPARISON: 02/06/2021 FINDINGS: Alignment is normal. No fracture or joint effusion. Joint spaces are normal. Soft tissues are unremar kable. IMPRESSION: 1. Negative right elbow radiographs. Reviewed, dictated and finalized at location A. 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
[2021-06-10 18:12] VITALS: BP 127/69; PULSE 98; RESP 17; TEMP 36.3; O2SAT 100
--- NOTE | 2021-06-10 18:26 | ED.FALL ---
HPI - Fall General Chief Complaint: Fall Stated Complaint: Ground level fall with ankle pain Time Seen by Provider: 06/10/21 18:26 Related Data Home Medications Medication Instructions Recorded Confirmed lisinopril 10 mg PO DAILY 02/19/19 02/27/21 tramadol 50 mg tablet 50 mg PO Q6H PRN 02/09/21 02/27/21 Allergies Allergy/AdvReac Type Severity Reaction Status Date / Time codeine AdvReac Mild N/V Verified 02/27/21 12:12 hydrocodone AdvReac Unknown Nausea Verified 02/27/21 12:12 NSAIDS (Non-Steroidal AdvReac Unknown Nausea Verified 02/27/21 12:12 Anti-Inflamma CORTICOSTEROIDS AdvReac Unknown NAUSEA AND Uncoded 02/27/21 12:12 VOMITING PMFSH Past Medical History Medical History Abnormal uterine bleeding DDD (degenerative disc disease) L-Spine Fibroid Hypertension Kidney failure Migraine Right elbow pain Surgical History Surgical History H/O tubal ligation History of History of hysterectomy Family History Family History Mother Diabetes mellitus Other Hypertension Social History Social History Alcohol intake: never Substance use: never Gender identity (if verbalized by the patient): Female Sexual Orientation (if Verbalized by the Patient): Straight or Heterosexual Spiritual care concerns: No Course Vital Signs Vital signs: Vital Signs Temperature 36.3 C L 06/10/21 18:12 Pulse Rate 98 06/10/21 18:12 Respiratory Rate 17 06/10/21 18:12 Blood Pressure 127/69 06/10/21 18:12 Pulse Oximetry 100 06/10/21 18:12 Temperature 36.3 C L 06/10/21 18:12 Pulse Rate 98 06/10/21 18:12 Respiratory Rate 17 06/10/21 18:12 Blood Pressure 127/69 06/10/21 18:12 Pulse Oximetry 100 06/10/21 18:12 Discharge Plan Discharge Clinical Impression: Contusion of elbow, right Qualifiers: Encounter type: initial encounter Qualified Code(s): S50.01XA - Contusion of right elbow, initial encounter Left ankle sprain Qualifiers: Encounter type: initial encounter Involved ligament of ankle: unspecified ligament Qualified Code(s): S93.402A - Sprain of unspecified ligament of left ankle, initial encounter Patient Disposition: Home, Self-Care Condition: Stable Instructions: Antibiotic Form Prescriptions: No Action cyclobenzaprine 10 mg tablet 10 mg PO TID PRN (Reason: muscle spasm) Qty: 15 RF: 0 methylprednisolone 4 mg tablets,dose pack 4 mg PO ONCE Qty: 21 RF: 0 lisinopril 10 mg tablet 10 mg PO DAILY RF: 0 meclizine 25 mg tablet 25 mg PO TID PRN (Reason: dizziness) Qty: 12 RF: 0 tramadol 50 mg tablet 50 mg PO Q6H PRNRF: 0 Follow-up/Referrals: Uriel,Priyanka Bravo MD [Primary Care Provider] - Time of Disposition: 19:13
--- NOTE | 2021-06-10 19:09 | ED.FALL ---
HPI - Fall General Chief Complaint: Fall Stated Complaint: Ground level fall with ankle pain Time Seen by Provider: 06/10/21 18:26 History of Present Illness HPI Narrative: 46-year-old female presents to the emergency room with multiple complaints. Patient states earlier today she slipped and fell striking her right elbow on a piece of furniture. Then later today she says she was cooking dinner she slipped on the kitchen rug twisting her left ankle. Patient was not ambulatory following the second injury. Patient normally uses a walker for ambulation. Related Data Home Medications Medication Instructions Recorded Confirmed lisinopril 10 mg PO DAILY 02/19/19 02/27/21 tramadol 50 mg tablet 50 mg PO Q6H PRN 02/09/21 02/27/21 Allergies Allergy/AdvReac Type Severity Reaction Status Date / Time codeine AdvReac Mild N/V Verified 02/27/21 12:12 hydrocodone AdvReac Unknown Nausea Verified 02/27/21 12:12 NSAIDS (Non-Steroidal AdvReac Unknown Nausea Verified 02/27/21 12:12 Anti-Inflamma CORTICOSTEROIDS AdvReac Unknown NAUSEA AND Uncoded 02/27/21 12:12 VOMITING Review of Systems Review of Systems: CONSTITUTIONAL: Denies fever, chills, or sweats. EYES: Denies visual changes, redness, or discharge. ENT: Denies rhinorrhea, congestion, sore throat, or otalgia. CARDIOVASCULAR: Denies chest pain, palpitations, or edema. RESPIRATORY: Denies cough or dyspnea. GASTROINTESTINAL: Denies abdominal pain, nausea, vomiting, or diarrhea. GENITOURINARY: Denies dysuria or hematuria. SKIN: Denies rash or itching. MUSCULOSKELETAL: Denies back pain, joint pain, or myalgia. NEUROLOGIC: Denies headache, numbness, dizziness, or weakness. PSYCHIATRIC: Denies anxiety or depression. [facility] Past Medical History Medical History Abnormal uterine bleeding DDD (degenerative disc disease) L-Spine Fibroid Hypertension Kidney failure Migraine Right elbow pain Surgical History Surgical History H/O tubal ligation History of History of hysterectomy Family History Family History Mother Diabetes mellitus Other Hypertension Social History Social History Alcohol intake: never Substance use: never Gender identity (if verbalized by the patient): Female Sexual Orientation (if Verbalized by the Patient): Straight or Heterosexual Spiritual care concerns: No Exam Narrative: GENERAL: Well-appearing, well-nourished, and in no acute distress. HEAD: Normocephalic, atraumatic. EYES: PERRLA and EOMI. ENT: Nares clear, no rhinorrhea or epistaxis. Mucous membranes moist. Oropharynx without tonsillar hypertrophy exudate or other lesions. Bilateral TMs pearly valente nonbulging NECK: Supple. No adenopathy or masses. No carotid bruits or JVD CHEST: Clear to auscultation. No respiratory distress. No wheezes rales or rhonchi HEART: Regular rate and rhythm. No murmur heard. Normal peripheral pulses. ABDOMEN: Soft, nontender, nondistended, normal active bowel sounds. EXTREMITIES: Normal range of motion. No edema. Right elbow: Tenderness to the olecranon process, no ecchymosis, no acute bony abnormality, full range of motion, neurovascular distally intact. Left ankle: Tenderness to the lateral malleolus, no soft tissue swelling, no ecchymosis, full range of motion SKIN: Warm, dry, no rash. NEURO: No focal deficits. Alert and oriented x3. PSYCH: Normal mood and affect. Course Vital Signs Vital signs: Vital Signs Temperature 36.3 C L 06/10/21 18:12 Pulse Rate 98 06/10/21 18:12 Respiratory Rate 17 06/10/21 18:12 Blood Pressure 127/69 06/10/21 18:12 Pulse Oximetry 100 06/10/21 18:12 Temperature 36.3 C L 06/10/21 18:12 Pulse Rate 98 06/10/21 18:12 Respiratory Rate 17 06/10/21 18:12 Bloo
== END 2021-06-10 19:35 | disposition home or self-care (01) ==
PROVIDERS: Emergency Provider Nurse Practitioner Family; PCP Family Medicine
DX: S93.402A Sprain of unspecified ligament of left ankle, initial encounter (principal); S50.01XA Contusion of right elbow, initial encounter; N19 Unspecified kidney failure; I10 Essential (primary) hypertension; W01.190A Fall on same level from slipping, tripping and stumbling with subsequent striking against furniture, initial encounter; X50.9XXA Other and unspecified overexertion or strenuous movements or postures, initial encounter
CPT/HCPCS: 73080; 73610; 99284

== ENCOUNTER 2021-06-26 09:41 | Emergency (ER) | payer OTHER, SELFPAY ==
--- NOTE | ~2021-06-26 | XR_ITS ---
EXAMINATION: XR lumbar spine 2-3V DATE: 06/26/2021 10:27 INDICATION: Low back pain. TECHNIQUE: 3 views of lumbar spine were obtained. COMPARISON: CT abdomen and pelvis 04/14/2010 FINDINGS: There is 7 degrees dextrocurvature of thoracolumbar spine. There are chronic bilateral L5 p ars defects. There is 5 mm anterolisthesis of L5 on S1. There is 1/5 height loss of L5 vertebral body , likely chronic. There is mildly decreased disc height at L3-L4 and L4-L5 and severely decreased dis c at L5-S1 with endplate remodeling. There is multilevel mild facet joint osteoarthritis. IMPRESSION: 1. Chronic bilateral L5 pars defects with grade 1 anterolisthesis of L5 on S1. 2. Severe lower lumbar spondylosis. Reviewed, dictated and finalized at location A.
[2021-06-26 09:53] VITALS: BP 122/97; PULSE 95; RESP 14; TEMP 36.6; O2SAT 99
--- NOTE | 2021-06-26 10:13 | ED.FALL ---
HPI - Fall General Chief Complaint: Fall Stated Complaint: fall, back pain Time Seen by Provider: 06/26/21 09:44 Source: patient History of Present Illness HPI Narrative: 46-year-old female presented to the emergency department for evaluation of lower back pain. Patient states she was attempting to unlock her car door when she fell straight backwards and injured her lower back. Patient does not suspect that she hit her head, patient had no loss of consciousness. Patient's primary complaint is lower back pain. Patient did take Tylenol prior to arrival and states that it helped but did not completely take the pain away. Patient denies any numbness or weakness. Related Data Home Medications Medication Instructions Recorded Confirmed lisinopril 10 mg PO DAILY 02/19/19 02/27/21 tramadol 50 mg tablet 50 mg PO Q6H PRN 02/09/21 02/27/21 fluoxetine mg 06/26/21 Allergies Allergy/AdvReac Type Severity Reaction Status Date / Time codeine AdvReac Mild N/V Verified 06/26/21 09:55 hydrocodone AdvReac Unknown Nausea Verified 06/26/21 09:55 NSAIDS (Non-Steroidal AdvReac Unknown Nausea Verified 06/26/21 09:55 Anti-Inflamma CORTICOSTEROIDS AdvReac Unknown NAUSEA AND Uncoded 06/26/21 09:55 VOMITING Review of Systems Review of Systems: CONSTITUTIONAL: Denies fever, chills, or sweats. EYES: Denies visual changes, redness, or discharge. ENT: Denies rhinorrhea, congestion, sore throat, or otalgia. CARDIOVASCULAR: Denies chest pain, palpitations, or edema. RESPIRATORY: Denies cough or dyspnea. GASTROINTESTINAL: Denies abdominal pain, nausea, vomiting, or diarrhea. GENITOURINARY: Denies dysuria or hematuria. SKIN: Denies rash or itching. MUSCULOSKELETAL: Low back pain NEUROLOGIC: Denies headache, numbness, or weakness. [facility] Past Medical History Medical History Abnormal uterine bleeding DDD (degenerative disc disease) L-Spine Fibroid Hypertension Kidney failure Migraine Right elbow pain Surgical History Surgical History H/O tubal ligation History of History of hysterectomy Family History Family History Mother Diabetes mellitus Other Hypertension Social History Social History Alcohol intake: never Substance use: never Gender identity (if verbalized by the patient): Female Sexual Orientation (if Verbalized by the Patient): Straight or Heterosexual Spiritual care concerns: No Exam Narrative: APPEARANCE: Well appearing, no pain, no distress, well-nourished. HEAD: normocephalic, atraumatic. EYES: PERRLA/EOMI, conjunctivae clear. NOSE: Normal no drainage NECK: Supple. No adenopathy, no masses. RESPIRATORY: Airway patent, respirations nonlabored. Clear to auscultation bilaterally, no rales, rhonchi, wheezing. CARDIOVASCULAR: Regular rate and rhythm without murmurs rubs or gallops. ABDOMINAL: Soft, nontender, nondistended, normal bowel sounds MUSCULOSKELETAL: Moves all extremities. Strength/ROM intact, No edema, No calf tenderness. Midline lumbar tenderness to palpation. No ecchymosis. No abrasions. No deformity or step-offs. NEURO: Alert. Cranial nerves II through XII intact. Grossly intact SKIN: Warm, dry. Normal Color Course Course Emergency Course: X-ray showed no acute fracture or dislocation. Patient was updated on the results of her imaging. Patient was encouraged to have close follow-up with her primary care physician. Vital Signs Vital signs: Vital Signs Temperature 97.9 F 06/26/21 09:53 Pulse Rate 95 06/26/21 09:53 Respiratory Rate 14 06/26/21 09:53 Blood Pressure 122/97 H 06/26/21 09:53 Pulse Oximetry 99 06/26/21 09:53 Temperature 97.9 F 06/26/21 09:53 Pulse Rate 95 06/26/21 09:53 Respiratory Rate 14 06/26/21 09:53 Blood Pres
[2021-06-26] MEDS: CYCLOBENZAPRINE HCL 10 MG TABLET PO (10:34)
== END 2021-06-26 11:14 | disposition home or self-care (01) ==
PROVIDERS: Emergency Provider Emergency Medicine
DX: S39.92XA Unspecified injury of lower back, initial encounter (principal); I10 Essential (primary) hypertension; N19 Unspecified kidney failure; W18.39XA Other fall on same level, initial encounter
CPT/HCPCS: 72100; 99283; A9270

== ENCOUNTER 2021-09-29 15:31 | Outpatient (CLI) | payer OTHER, SELFPAY ==
--- NOTE | ~2021-09-29 | XR_ITS ---
EXAMINATION: XR shoulder RT min 2V INDICATION: Right shoulder pain TECHNIQUE: Four views of the right shoulder are submitted. COMPARISON: 04/25/2019 FINDINGS: Normal alignment. No fracture. There is mild osteoarthritis of the acromioclavicular and gl enohumeral joints. Soft tissues are unremarkable. IMPRESSION: 1. No acute osseous abnormality. Reviewed, dictated and finalized at location F.
--- NOTE | ~2021-09-29 | XR_ITS ---
XR wrist RT min 3V DATE: 09/29/2021 16:14 INDICATION: Fall. Medial pain. TECHNIQUE: 4 views COMPARISON: 02/19/2019 right wrist FINDINGS: No fracture or dislocation, periosteal reaction or bone destruction, erosive change or ame dral calcinosis. IMPRESSION: Negative Reviewed, dictated and finalized at location A. IMPRESSION: Negative
--- NOTE | ~2021-09-29 | XR_ITS ---
EXAMINATION: XR clavicle RT INDICATION: Right shoulder pain TECHNIQUE: Two views of the right clavicle are obtained. COMPARISON: None available FINDINGS: There is no fracture, dislocation, or subluxation. There is mild osteoarthritis of the bashir ohumeral and acromioclavicular joints. IMPRESSION: 1. No acute osseous abnormality. Reviewed, dictated and finalized at location F.
== END 2021-09-29 15:32 | disposition home or self-care (01) ==
PROVIDERS: PCP Physician Assistant
DX: M25.511 Pain in right shoulder (principal); M25.531 Pain in right wrist
CPT/HCPCS: 73000; 73030; 73110

== ENCOUNTER 2021-11-21 08:52 | Emergency (ER) | payer OTHER, SELFPAY ==
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
[2021-11-21 08:51] VITALS: BP 134/84; PULSE 93; RESP 20; TEMP 37.1; O2SAT 96
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
[2021-11-21] MEDS: ORPHENADRINE CITRATE 100 MG TABLET.ER PO (09:35)
[2021-11-21] MEDS: traMADol HCL (*CRX) 50 MG TABLET PO (09:35)
[2021-11-21 11:21] VITALS: BP 122/74; PULSE 82; RESP 16; O2SAT 100
== END 2021-11-21 11:22 | disposition home or self-care (01) ==
PROVIDERS: Emergency Provider Nurse Practitioner Family; PCP Physician Assistant
DX: S16.1XXA Strain of muscle, fascia and tendon at neck level, initial encounter (principal); S39.012A Strain of muscle, fascia and tendon of lower back, initial encounter; S80.02XA Contusion of left knee, initial encounter; S80.01XA Contusion of right knee, initial encounter; I10 Essential (primary) hypertension; M17.0 Bilateral primary osteoarthritis of knee; M47.812 Spondylosis without myelopathy or radiculopathy, cervical region; M47.816 Spondylosis without myelopathy or radiculopathy, lumbar region; V43.52XA Car driver injured in collision with other type car in traffic accident, initial encounter
CPT/HCPCS: 72040; 72100; 73562; 99284; A9270

== ENCOUNTER 2021-12-15 17:33 | Emergency (ER) | payer OTHER, SELFPAY ==
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
[2021-12-15 17:41] VITALS: BP 145/83; PULSE 97; RESP 16; O2SAT 100
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
[2021-12-15] MEDS: ACETAMINOPHEN 325 MG TABLET 650 MG PO (19:03)
--- NOTE | 2021-12-15 19:13 | PC.NURSE ---
Patient report received from LE Mendoza. Assumed care of patient at this time.
[2021-12-15 19:42] VITALS: BP 133/84; PULSE 93; RESP 20; O2SAT 98
== END 2021-12-15 19:44 | disposition home or self-care (01) ==
PROVIDERS: Emergency Provider Emergency Medicine; PCP Physician Assistant
DX: S00.01XA Abrasion of scalp, initial encounter (principal); G62.9 Polyneuropathy, unspecified; I10 Essential (primary) hypertension; N19 Unspecified kidney failure; Z90.710 Acquired absence of both cervix and uterus; W18.39XA Other fall on same level, initial encounter
CPT/HCPCS: 70450; 99284; A9270

== ENCOUNTER 2022-01-16 06:26 | Outpatient (RCR) | payer OTHER, SELFPAY | END 2022-04-03 12:39 | disposition home or self-care (01) | LOC: ANHPT 06:26 | PROVIDERS: PCP Physician Assistant; Visit Provider Physician Assistant | DX: G83.11 Monoplegia of lower limb affecting right dominant side (principal) | CPT/HCPCS: 99199 ==

== ENCOUNTER 2022-04-04 14:55 | Emergency (ER) | payer OTHER, SELFPAY ==
[2022-04-04 15:09] VITALS: BP 126/82; PULSE 91; RESP 18; TEMP 36.3; O2SAT 99
--- NOTE | 2022-04-04 18:55 | PC.NURSE ---
pt called for room x3 , pt not in lobby.
== END 2022-04-04 19:05 | disposition left against medical advice (07) ==
LOC: ANHED 19:04
PROVIDERS: PCP Physician Assistant
DX: R42 Dizziness and giddiness (principal)
CPT/HCPCS: 99199

== ENCOUNTER 2022-06-28 09:14 | Emergency (ER) | payer OTHER, SELFPAY ==
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
--- NOTE | ~2022-06-28 | XR_ITS ---
EXAMINATION: XR thoracic spine 3V DATE: 06/28/2022 10:28 INDICATION: Upper back pain. Right rib pain. Fall. TECHNIQUE: 3 views of thoracic spine were obtained. COMPARISON: None. FINDINGS: There is 6 degrees levocurvature of lower thoracic spine. Vertebral body heights are normal . There is mildly decreased disc height at multiple levels in mid thoracic spine. There are endplate osteophytes at many levels. IMPRESSION: 1. Mild thoracic spondylosis. Reviewed, dictated and finalized at location A.
[2022-06-28 09:33] VITALS: BP 150/88; PULSE 90; RESP 18; TEMP 36.7; O2SAT 99
--- NOTE | 2022-06-28 09:47 | ED.FALL ---
HPI - Fall General Chief Complaint: Fall Stated Complaint: fall - back pain Time Seen by Provider: 06/28/22 09:31 History of Present Illness HPI Narrative: 47-year-old female presents to the emergency room for injury sustained in a ground-level mechanical fall on Saturday. Patient states she has fallen twice over the past week, both occasions landing on the same spot on her right upper back. Most recently she slipped while outside landing on her back. Patient states that she has pain just below her right shoulder blade. Pain is worse with movement and with inspiration. Has been taking Tylenol with no relief of symptoms. Related Data Home Medications Medication Instructions Recorded Confirmed lisinopril 10 mg tablet 10 mg PO DAILY 02/19/19 02/27/21 tramadol 50 mg tablet 50 mg PO Q6H PRN 02/09/21 02/27/21 fluoxetine 20 mg tablet mg 06/26/21 Allergies Allergy/AdvReac Type Severity Reaction Status Date / Time codeine AdvReac Mild N/V Verified 04/04/22 15:09 hydrocodone AdvReac Unknown Nausea Verified 04/04/22 15:09 NSAIDS (Non-Steroidal AdvReac Unknown Nausea Verified 04/04/22 15:09 Anti-Inflamma CORTICOSTEROIDS AdvReac Unknown NAUSEA AND Uncoded 06/26/21 09:55 VOMITING Review of Systems Review of Systems: CONSTITUTIONAL: Denies fever, chills, or sweats. EYES: Denies visual changes, redness, or discharge. ENT: Denies rhinorrhea, congestion, sore throat, or otalgia. CARDIOVASCULAR: Denies chest pain, palpitations, or edema. RESPIRATORY: Denies cough or dyspnea. GASTROINTESTINAL: Denies abdominal pain, nausea, vomiting, or diarrhea. GENITOURINARY: Denies dysuria or hematuria. SKIN: Denies rash or itching. MUSCULOSKELETAL: Denies back pain, joint pain, or myalgia. NEUROLOGIC: Denies headache, numbness, dizziness, or weakness. PSYCHIATRIC: Denies anxiety or depression. [facility] Past Medical History Medical History Abnormal uterine bleeding DDD (degenerative disc disease) L-Spine Fibroid Hypertension Kidney failure Migraine Right elbow pain Surgical History Surgical History H/O tubal ligation History of History of hysterectomy Family History Family History Mother Diabetes mellitus Other Hypertension Social History Social History Alcohol intake: never Substance use: never Living arrangements: with family Occupation/Education: unemployed Gender identity (if verbalized by the patient): Female Sexual Orientation (if Verbalized by the Patient): Straight or Heterosexual Spiritual care concerns: No Exam Narrative: GENERAL: Well-appearing, well-nourished, no physical limitations, and in no acute distress. HEAD: Normocephalic, atraumatic. EYES: Conjunctivae normal, PERRLA and EOMI. CHEST: Clear to auscultation. No respiratory distress. No wheezes rales or rhonchi. No tenderness. HEART: Regular rate and rhythm. No murmur heard. Normal peripheral pulses. ABDOMEN: Soft, nontender, nondistended, normal active bowel sounds. BACK: No cervical/thoracic/lumbar tenderness, step-offs, bony abnormality; FROM. +TTP with ecchymosis to right upper thoracic region. No STS. No evidence of flail chest EXTREMITIES: Normal range of motion. No edema. No clubbing or cyanosis SKIN: Warm, dry, no rash. No noted wounds NEURO: No focal deficits. Alert and oriented x3. MAEW. CN's II-XI intact bilaterally, normal gait PSYCH: Cooperative. Normal mood and affect. Course Vital Signs Vital signs: Vital Signs Temperature 36.7 C 06/28/22 09:33 Pulse Rate 90 06/28/22 09:33 Respiratory Rate 18 06/28/22 09:33 Blood Pressure 150/88 H 06/28/22 09:33 Pulse Oximetry 99 06/28/22 09:33 Oxygen Delivery Room Air 06/28/22 09:33 Temperature 36.7 C 06/28/22 09:33 Pul
[2022-06-28 10:58] VITALS: BP 134/83; PULSE 78; RESP 16; O2SAT 98
== END 2022-06-28 11:00 | disposition home or self-care (01) ==
PROVIDERS: Emergency Provider Nurse Practitioner Family; PCP Physician Assistant
DX: S20.221A Contusion of right back wall of thorax, initial encounter (principal); I10 Essential (primary) hypertension; Z90.710 Acquired absence of both cervix and uterus; M47.814 Spondylosis without myelopathy or radiculopathy, thoracic region; W01.0XXA Fall on same level from slipping, tripping and stumbling without subsequent striking against object, initial encounter
CPT/HCPCS: 71046; 71100; 72072; 99283; 99284

== ENCOUNTER 2022-09-17 15:33 | Emergency (ER) | payer OTHER, SELFPAY ==
[2022-09-17 15:41] VITALS: BP 113/70; PULSE 86; RESP 16; TEMP 36.4; O2SAT 100
--- NOTE | 2022-09-17 17:28 | PC.NURSE ---
Patient called to place into exam room 17 with no response.
--- NOTE | 2022-09-17 17:46 | PC.NURSE ---
Patient called for second time to place in exam room.
--- NOTE | 2022-09-17 18:29 | PC.NURSE ---
Attempted to place patient into exam room. patient did not respond for the third time. Assumed to have left without being seen after triage.
== END 2022-09-17 18:40 | disposition left against medical advice (07) ==
LOC: ANHED 18:34
PROVIDERS: PCP Physician Assistant
DX: M54.2 Cervicalgia (principal)
CPT/HCPCS: 99199

== ENCOUNTER 2022-09-17 23:51 | Emergency (ER) | payer OTHER, SELFPAY ==
[2022-09-17 23:55] VITALS: BP 114/90; PULSE 108; RESP 18; TEMP 36.7; O2SAT 98
[2022-09-18 01:27] VITALS: BP 136/86; PULSE 113; RESP 15; TEMP 36.4; O2SAT 100
--- NOTE | 2022-09-18 02:22 | ED.NECK ---
HPI - Neck Pain/Injury General Chief Complaint: Neck Pain/Injury Stated Complaint: neck pain Time Seen by Provider: 09/18/22 01:36 History of Present Illness HPI Narrative: This is a 47-year-old female with past history of peripheral neuropathy, who presents the emergency department complaining of right-sided neck pain for the past 2 to 3 days. The patient states she has bad pillows at home and has noted right neck spasm and soreness, rated 7/10 this is associated with some paresthesias of the right arm but no weakness. She has no other complaints today. Related Data Home Medications Medication Instructions Recorded Confirmed lisinopril 10 mg tablet 10 mg PO DAILY 02/19/19 02/27/21 tramadol 50 mg tablet 50 mg PO Q6H PRN 02/09/21 02/27/21 fluoxetine 20 mg tablet mg 06/26/21 Allergies Allergy/AdvReac Type Severity Reaction Status Date / Time codeine AdvReac Mild N/V Verified 09/17/22 15:34 hydrocodone AdvReac Unknown Nausea Verified 09/17/22 15:34 NSAIDS (Non-Steroidal AdvReac Unknown Nausea Verified 09/17/22 15:34 Anti-Inflamma CORTICOSTEROIDS AdvReac Unknown NAUSEA AND Uncoded 09/17/22 15:34 VOMITING Review of Systems Review of Systems: CONSTITUTIONAL: Denies fever, chills, or sweats.. CARDIOVASCULAR: Denies chest pain, palpitations, or edema. RESPIRATORY: Denies cough or dyspnea. GASTROINTESTINAL: Denies abdominal pain, nausea, vomiting, or diarrhea. GENITOURINARY: Denies dysuria or hematuria. SKIN: Denies rash or itching. MUSCULOSKELETAL: Right-sided neck pain, chronic right knee pain denies back pain, or myalgia. NEUROLOGIC: Paresthesias of the right arm denies headache, numbness, dizziness, or weakness. PSYCHIATRIC: Denies anxiety or depression. [facility] Past Medical History Medical History Abnormal uterine bleeding DDD (degenerative disc disease) L-Spine Fibroid Hypertension Kidney failure Migraine Right elbow pain Surgical History Surgical History H/O tubal ligation History of History of hysterectomy Family History Family History Mother Diabetes mellitus Other Hypertension Social History Social History Alcohol intake: never Substance use: never Living arrangements: with family Occupation/Education: unemployed Gender identity (if verbalized by the patient): Female Sexual Orientation (if Verbalized by the Patient): Straight or Heterosexual Spiritual care concerns: No Exam Narrative: GENERAL: Well-developed, well-nourished, appears uncomfortable HEAD: Normocephalic, atraumatic. EYES: PERRLA and EOMI. ENT: Nares clear, no rhinorrhea or epistaxis. Mucous membranes moist. Oropharynx without tonsillar hypertrophy exudate or other lesions. NECK: Muscle spasm of the right paraspinal muscles and right trapezius. No adenopathy or masses. No carotid bruits or JVD. No midline spine tenderness to palpation, no step-off or crepitus CHEST: Clear to auscultation. No respiratory distress. No wheezes rales or rhonchi HEART: Regular rate and rhythm. No murmur heard. Normal peripheral pulses. ABDOMEN: Soft, nontender, nondistended, normal active bowel sounds. EXTREMITIES: Normal range of motion. No edema. NEURO: No focal deficits. Alert and oriented x3. Strength 5/5 in all extremities, sensation intact bilaterally PSYCH: Normal mood and affect. Course Course Emergency Course: 03:08 - On reevaluation, patient states her pain is somewhat improved. Will discharge with muscle relaxers, lidocaine patches and recommendations for follow-up with her primary care doctor. Discussed return and emergency precautions including signs/symptoms of focal neural deficit and airway compromise. The patient voiced understanding and is comfortable with th
[2022-09-18] MEDS: ONDANSETRON HCL ODT 4 MG TABLET PO (02:34)
[2022-09-18] MEDS: CYCLOBENZAPRINE HCL 10 MG TABLET PO (02:34)
[2022-09-18] MEDS: KETOROLAC 30 MG/ML VIAL (*BKC) IM (02:34)
[2022-09-18 03:31] VITALS: BP 123/83; PULSE 100; RESP 14; TEMP 36.6; O2SAT 99
== END 2022-09-18 03:32 | disposition home or self-care (01) ==
PROVIDERS: Emergency Provider Preventive Medicine Aerospace Medicine; PCP Physician Assistant
DX: M54.12 Radiculopathy, cervical region (principal); M62.838 Other muscle spasm; I10 Essential (primary) hypertension; N19 Unspecified kidney failure; Z90.710 Acquired absence of both cervix and uterus
CPT/HCPCS: 96372; 99283; A9270; J1885

== ENCOUNTER 2022-12-09 00:10 | Emergency (ER) | payer OTHER, SELFPAY ==
--- NOTE | ~2022-12-09 | XR_ITS ---
XR chest 2V DATE: 12/09/2022 00:36 INDICATION: Cough TECHNIQUE: PA and lateral views COMPARISON: 06/28/2022 PA and lateral chest FINDINGS: Normal heart size. No hilar or mediastinal enlargement. No pulmonary infiltrate or consolid ation, pleural effusion or pulmonary vascular congestion or pneumothorax. IMPRESSION: No active cardiopulmonary disease Reviewed, dictated and finalized at location A.
[2022-12-09 00:14] VITALS: BP 129/71; PULSE 104; RESP 18; TEMP 36.3; O2SAT 99
[2022-12-09] MEDS: predniSONE 20 MG TABLET 40 MG PO (01:26)
[2022-12-09] MEDS: traMADol HCL (*CRX) 50 MG TABLET PO (01:27)
[2022-12-09] MEDS: IBUPROFEN 600 MG TABLET PO (01:28)
[2022-12-09] MEDS: BENZONATATE 100 MG CAPSULE PO (01:28)
[2022-12-09] MEDS: ALBUTEROL SULFATE NEB 2.5 MG/3 ML INH INHALATION (01:32)
[2022-12-09 01:34] VITALS: PULSE 94; RESP 20
[2022-12-09 01:42] VITALS: PULSE 96; RESP 22
[2022-12-09 01:44] VITALS: BP 136/79; PULSE 91; RESP 21; O2SAT 100
--- NOTE | 2022-12-09 01:53 | ED.GENADULT ---
HPI - General Adult General Chief complaint: Unspecified Stated complaint: cough, left arm pain Time Seen by Provider: 12/09/22 01:12 History of Present Illness HPI narrative: Patient presents to the emergency department from home with her family. Complaint of persistent cough for the past 5 days she is coughing so hard she has posttussive emesis. Denies shortness of breath or chest pain. Denies history of asthma or COPD. Taking [id number] cough medications without improvement of her cough. Also complaining of posterior left arm pain. States that her deltoid area is very tender and request something to make the muscle relax . Denies weakness or numbness to her extremities. Denies neck pain. Denies fevers and chills. Patient is very pleasant and her exam is grossly benign Related Data Home Medications Medication Instructions Recorded Confirmed lisinopril 10 mg tablet 10 mg PO DAILY 02/19/19 11/08/22 Allergies Allergy/AdvReac Type Severity Reaction Status Date / Time codeine AdvReac Mild N/V Verified 12/09/22 00:11 hydrocodone AdvReac Unknown Nausea Verified 12/09/22 00:11 NSAIDS (Non-Steroidal AdvReac Unknown Nausea Verified 12/09/22 00:11 Anti-Inflamma CORTICOSTEROIDS AdvReac Unknown NAUSEA AND Uncoded 12/09/22 00:11 VOMITING Review of Systems Review of Systems: review of systems negative except for what is documented in the [facility] Past Medical History Medical History (Updated 12/09/22 @ 02:03 by Maria Guadalupe Linda MD) Abnormal uterine bleeding DDD (degenerative disc disease) L-Spine Fibroid Hx of ovarian cancer hysterectomy with oophorectomy in 2003 Hypertension Kidney failure Migraine Right elbow pain Surgical History Surgical History (Updated 11/08/22 @ 15:49 by Fanta Lopez APRN) H/O tubal ligation History of History of hysterectomy hx of oviarian cancer in 2003 Family History Family History Mother Diabetes mellitus Other Hypertension Social History Social History (Updated 11/08/22 @ 16:03 by Scottie Gaffney MA) Smoking status: Never smoker Alcohol intake: never Substance use: never Lack of Transportation: No Lack of Food: Sometimes True Current Housing: I Have Housing Concerned About Future Housing: YES Difficulty Paying Gas/Electric Bills: YES Difficulty Paying for Meds: No Currently Unemployed: No Education: High School Diploma/GED Difficulty w/ Childcare or Family Care: No Living arrangements: with family Occupation/Education: unemployed Gender identity (if verbalized by the patient): Female Sexual Orientation (if Verbalized by the Patient): Straight or Heterosexual Spiritual care concerns: No Exam Narrative: GENERAL: Well-appearing, well-nourished, and in no acute distress. HEAD: Normocephalic, atraumatic. EYES: PERRLA and EOMI. ENT: Nares clear, no rhinorrhea or epistaxis. Mucous membranes moist. NECK: Supple. CHEST: Clear to auscultation. No respiratory distress. HEART: Regular rate and rhythm. ABDOMEN: Soft, nontender, nondistended. EXTREMITIES: Normal range of motion. No edema. Focal triceps muscle tenderness left upper arm SKIN: Warm, dry, no rash. NEURO: No focal deficits. Alert and oriented x3. PSYCH: Normal mood and affect. Course Course Emergency Course: Persistent cough. Vital signs stable no hypoxemia. Vital Signs Vital signs: Vital Signs Temperature 36.3 C L 12/09/22 00:14 Pulse Rate 104 H 12/09/22 00:14 Respiratory Rate 18 12/09/22 00:14 Blood Pressure 129/71 12/09/22 00:14 Pulse Oximetry 99 12/09/22 00:14 Oxygen Delivery Room Air 12/09/22 00:14 Temperature 36.3 C L 12/09/22 00:14 Pulse Rate 91 12/09/22 01:44 Respiratory Rate 21 H 12/09/22 01:44 Blood Pressure 136/79 12/09/22 01:44 Pulse Oximetry 100 12/09/22 01:44 Oxygen Delivery Room Air 12/09/22 00:
[2022-12-09 04:12] VITALS: BP 118/82
== END 2022-12-09 04:12 | disposition home or self-care (01) ==
PROVIDERS: Emergency Provider Emergency Medicine; PCP Family Medicine
DX: M79.602 Pain in left arm (principal); R05.1 Acute cough; Z87.42 Personal history of other diseases of the female genital tract; I10 Essential (primary) hypertension
CPT/HCPCS: 71046; 94640; 99283; A9270; J7512

== ENCOUNTER 2023-04-03 16:02 | Emergency (ER) | payer OTHER, SELFPAY ==
--- NOTE | ~2023-04-03 | XR_ITS ---
EXAMINATION: XR shoulder RT min 2V DATE: 04/03/2023 16:32 INDICATION: Right shoulder injury. TECHNIQUE: 4 views of right shoulder were obtained. COMPARISON: Right shoulder radiographs 09/29/2021 FINDINGS: Bone alignment is normal. No fracture. There is mild osteoarthritis of glenohumeral joint a nd acromioclavicular joint. IMPRESSION: 1. Mild polyarticular osteoarthritis. Reviewed, dictated and finalized at location E. 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
--- NOTE | ~2023-04-03 | CT_ITS ---
EXAMINATION: CT lumbar spine wo con DATE: 04/03/2023 16:52 INDICATION: Midline low back pain. Fall. TECHNIQUE: Computed tomography (CT) of the lumbar spine was performed without intravenous contrast. A utomated exposure control and iterative reconstruction technique were employed. The dose-length produ ct was 1342.35 mGy-cm. COMPARISON: Lumbar spine radiographs 11/21/2021 FINDINGS: There is a 2 mm stone in left kidney. There is 9 degrees dextrocurvature of thoracolumbar s pine. There is a chronic compression fracture of T12 with 1/5 loss of height. There are chronic bilat eral L5 pars defects. There is 4 mm anterolisthesis of L5 on S1. There is a chronic compression fract ure of L5 with 1/5 loss of height. There is severely decreased disc height at L5-S1. The following di sc levels are specifically discussed: L1-L2: The disc does not extend beyond the endplate margin. There is mild bilateral facet joint osteo arthritis. There is no neural foraminal stenosis. There is no central canal stenosis. L2-L3: The disc does not extend beyond the endplate margin. There is mild bilateral facet joint osteo arthritis. There is no neural foraminal stenosis. There is no central canal stenosis. L3-L4: The disc is bulging. There is mild bilateral facet joint osteoarthritis. There is mild bilater al neural foraminal stenosis. There is mild central canal stenosis. L4-L5: The disc is bulging. There is mild bilateral facet joint osteoarthritis. There is mild bilater al neural foraminal stenosis. There is mild central canal stenosis. L5-S1: The disc is bulging. There is mild bilateral facet joint osteoarthritis. There is moderate leta ateral neural foraminal stenosis. There is mild central canal stenosis. IMPRESSION: 1. No acute fracture. 2. Chronic bilateral L5 pars defects with grade 1 anterolisthesis of L5 on S1. 3. Severe lower lumbar spondylosis. Reviewed, dictated and finalized at location E. 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
--- NOTE | ~2023-04-03 | XR_ITS ---
XR wrist RT min 3V DATE: 04/03/2023 16:32 INDICATION: Fall. Right wrist injury, pain TECHNIQUE: 3 views COMPARISON: 09/29/2021 right wrist FINDINGS: No fracture or dislocation, periosteal reaction or bone destruction, erosive change or ame drocalcinosis. There is some widening at the scapholunate joint. This is likely chronic. IMPRESSION: Chronic widening at the scapholunate joint No fracture or dislocation Reviewed, dictated and finalized at location B. M TANK OPERATOR
[2023-04-03 16:05] VITALS: BP 141/67; PULSE 84; RESP 18; TEMP 36.9; O2SAT 99
--- NOTE | 2023-04-03 16:45 | ED.GENADULT ---
HPI - General Adult General Chief complaint: Fall Stated complaint: fall Time Seen by Provider: 04/03/23 16:11 Source: patient Mode of arrival: wheelchair Limitations: no limitations History of Present Illness HPI narrative: this is a 47-year-old female with PMH of HTN, peripheral neuropathy, migraines who presents to the ED with chief complaint of a mechanical fall that occurred just prior to arrival. Patient reports she was walking up the stairs lost her tobacco sizer and footing and fell backwards down 3-4 stairs. Reports she landed onto her back and right side. She reports subsequent pain to the right wrist and right shoulder. She also reports a head injury but no LOC. denies headache, numbness, weakness, speech difficulty, vision change or any further sites of pain or injury. Related Data Home Medications Medication Instructions Recorded Confirmed lisinopril 10 mg tablet 10 mg PO DAILY 02/19/19 11/08/22 Allergies Allergy/AdvReac Type Severity Reaction Status Date / Time codeine AdvReac Mild N/V Verified 04/03/23 16:08 hydrocodone AdvReac Unknown Nausea Verified 04/03/23 16:08 NSAIDS (Non-Steroidal AdvReac Unknown Nausea Verified 04/03/23 16:08 Anti-Inflamma CORTICOSTEROIDS AdvReac Unknown NAUSEA AND Uncoded 04/03/23 16:08 VOMITING Review of Systems Review of Systems: All systems as dictated in [facility] Past Medical History Medical History (Updated 04/03/23 @ 17:42 by Chas Kenny PA-C) Abnormal uterine bleeding DDD (degenerative disc disease) L-Spine Fibroid Hx of ovarian cancer hysterectomy with oophorectomy in 2003 Hypertension Kidney failure Migraine Right elbow pain Surgical History Surgical History (Updated 11/08/22 @ 15:49 by Fanta Lopez APRN) H/O tubal ligation History of History of hysterectomy hx of oviarian cancer in 2003 Family History Family History Mother Diabetes mellitus Other Hypertension Social History Social History (Updated 11/08/22 @ 16:03 by Scottie Gaffney MA) Smoking status: Never smoker Alcohol intake: never Substance use: never Lack of Transportation: No Lack of Food: Sometimes True Current Housing: I Have Housing Concerned About Future Housing: YES Difficulty Paying Gas/Electric Bills: YES Difficulty Paying for Meds: No Currently Unemployed: No Education: High School Diploma/GED Difficulty w/ Childcare or Family Care: No Living arrangements: with family Occupation/Education: unemployed Gender identity (if verbalized by the patient): Female Sexual Orientation (if Verbalized by the Patient): Straight or Heterosexual Spiritual care concerns: No Exam Narrative: GENERAL: Well-appearing, well-nourished, and in no acute distress. HEAD: Normocephalic, atraumatic. EYES: PERRLA and EOMI. ENT: Nares clear, no rhinorrhea or epistaxis. Mucous membranes moist. Oropharynx without tonsillar hypertrophy exudate or other lesions. NECK: Supple. No adenopathy or masses. CHEST: No respiratory distress. Clear to auscultation. No wheezes rales or rhonchi HEART: Regular rate and rhythm. No murmur heard. Normal peripheral pulses. ABDOMEN: Soft, nontender, nondistended, normal active bowel sounds. MSK: Mild midline spinal tenderness in the lumbar spine. No tenderness throughout the rest of the spine. Pain with passive range of motion of the right shoulder and right wrist. There is mild bruising over the right wrist. No significant swelling throughout the upper extremities.. Neurovascularly intact distally. no anatomical snuffbox tenderness SKIN: Warm, dry, no rash. NEURO: Alert and oriented x3. No focal deficits. PSYCH: Normal mood and affect. Course Vital Signs Vital signs: Vital Signs Temperature 98.4 F 04/03/23 16:05 Pulse Rate 84 04/03/23 16:05 Respiratory Rate 18 04/03/23 16:05 Blood Pressure 141/67 H /0
[2023-04-03] MEDS: ACETAMINOPHEN 500 MG TABLET 1000 MG PO (17:22)
== END 2023-04-03 18:00 | disposition home or self-care (01) ==
PROVIDERS: Emergency Provider Physician Assistant; PCP Physician Assistant
DX: S69.91XA Unspecified injury of right wrist, hand and finger(s), initial encounter (principal); W10.9XXA Fall (on) (from) unspecified stairs and steps, initial encounter; I10 Essential (primary) hypertension; G62.9 Polyneuropathy, unspecified; Z85.43 Personal history of malignant neoplasm of ovary; Z79.51 Long term (current) use of inhaled steroids
CPT/HCPCS: 72131; 73030; 73110; 99284; A9270

== ENCOUNTER 2023-09-12 08:54 | Outpatient (CLI) | payer OTHER, SELFPAY ==
--- NOTE | ~2023-09-12 | MM_ITS ---
EXAMINATION: MM screening marily BI w phong HISTORY: Screening TECHNIQUE: Craniocaudal and mediolateral oblique 3-D tomosynthesis images were obtained and synthetic 2-D images were generated. CAD analysis was submitted and interpreted. COMPARISON: No prior mammogram is available for comparison at this institution. BREAST PARENCHYMAL COMPOSITION: Not dense: There are scattered areas of fibroglandular density. FINDINGS: There is no evidence of suspicious mass, calcification, or architectural distortion to sugg est malignancy in either breast. There has been no suspicious interval change. IMPRESSION: 1. No mammographic evidence of malignancy. 2. Recommend routine screening mammography in one year. BI-RADS Category 1: Negative Reviewed, dictated and finalized at location B.
== END 2023-09-12 08:55 | disposition home or self-care (01) ==
PROVIDERS: PCP Physician Assistant; Visit Provider Registered Nurse
DX: Z12.31 Encounter for screening mammogram for malignant neoplasm of breast (principal)
CPT/HCPCS: 77063; 77067

== ENCOUNTER 2024-01-04 18:54 | Emergency (ER) | payer OTHER, SELFPAY ==
--- NOTE | ~2024-01-04 | CT_ITS ---
EXAMINATION: CT brain wo con DATE: 01/04/2024 19:25 INDICATION: fall . TECHNIQUE: Computed tomography (CT) of the head was performed without intravenous contrast. The mA wa s adjusted according to patient size. Iterative reconstruction technique was employed. The dose-lengt h product was 681.00 mGy-cm. COMPARISON: 12/15/2021. FINDINGS: No acute intracranial hemorrhage or extra-axial fluid collection. No hydrocephalus, mass, or herniation. No acute ischemic infarct. Unremarkable dural venous sinus attenuation. No acute osseous abnormality. Right parietal scalp contusion. Small left maxillary retention cyst/polyp, the remaining aerated spaces are clear. IMPRESSION: No acute intracranial process. Reviewed, dictated and finalized at location K.
--- NOTE | ~2024-01-04 | XR_ITS ---
EXAM: XR shoulder RT min 2V DATE: 01/04/2024 19:30 HISTORY: pain s/p fall . COMPARISON: 04/03/23. FINDINGS: Normal mineralization. No fracture or dislocation. No lytic or blastic lesion. Mild polyar ticular osteoarthritis. No erosion or periosteal change. Soft tissues within normal limits. IMPRESSION: No acute osseous finding in the right shoulder. Reviewed, dictated and finalized at location K.
--- NOTE | ~2024-01-04 | CT_ITS ---
EXAMINATION: CT cervical spine wo con DATE: 01/04/2024 19:25 INDICATION: fall TECHNIQUE: Computed tomography (CT) of the cervical spine was performed without intravenous contrast. Automated exposure control and iterative reconstruction technique were employed. The dose-length pro duct was 390.53 mGy-cm. COMPARISON: 02/25/2019. FINDINGS: Vertebral Body Alignment: Intact. Mild reversal of the normal cervical lordosis. Craniocervical and atlantoaxial alignment: Mild degenerative change. Alignment intact. Osseous structures/fracture: No evidence of a lytic or blastic process in the visualized spine. No e vidence of acute fracture. Cervical soft tissues: The paraspinal soft tissues planes are maintained. Subcentimeter thyroid nodul es which require no additional evaluation at this time Degenerative changes: Degenerative changes, without severe neural foraminal or central canal narrowin g. IMPRESSION: No acute fracture or traumatic malalignment in the cervical spine. Reviewed, dictated and finalized at location K.
[2024-01-04 18:58] VITALS: BP 143/107; PULSE 112; RESP 20; TEMP 36.7; O2SAT 98
--- NOTE | 2024-01-04 20:20 | ED.GENADULT ---
HPI - General Adult General Chief complaint: Fall Stated complaint: fall Time Seen by Provider: 01/04/24 19:03 History of Present Illness HPI narrative: Patient 58-year-old female who presents emergency department with chief complaint of head injury. The patient reports that she tripped over her dog walking in front of her the patient states she struck her head had some nausea and vomiting afterwards the patient reports she has pain with movement of her head and neck patient also reports pain in her right shoulder. Related Data Home Medications Medication Instructions Recorded Confirmed lisinopril 10 mg tablet 10 mg PO DAILY 02/19/19 11/08/22 Allergies Allergy/AdvReac Type Severity Reaction Status Date / Time codeine AdvReac Mild N/V Verified 01/04/24 19:05 hydrocodone AdvReac Unknown Nausea Verified 01/04/24 19:05 NSAIDS (Non-Steroidal AdvReac Unknown Nausea Verified 01/04/24 19:05 Anti-Inflamma CORTICOSTEROIDS AdvReac Unknown NAUSEA AND Uncoded 01/04/24 19:05 VOMITING Review of Systems Review of Systems: A 10 system review of systems was completed on the patient and is negative except for what is stated in the HPI. Nursing and ancillary documentation was reviewed. [facility] Past Medical History Medical History Abnormal uterine bleeding DDD (degenerative disc disease) L-Spine Fibroid Hx of ovarian cancer hysterectomy with oophorectomy in 2003 Hypertension Kidney failure Migraine Right elbow pain Surgical History Surgical History H/O tubal ligation History of History of hysterectomy hx of oviarian cancer in 2003 Family History Family History Mother Diabetes mellitus Other Hypertension Social History Social History Smoking status: Never smoker Alcohol intake: never Substance use: never Lack of Transportation: No Lack of Food: Sometimes True Current Housing: I Have Housing Concerned About Future Housing: YES Difficulty Paying Gas/Electric Bills: YES Difficulty Paying for Meds: No Currently Unemployed: No Education: High School Diploma/GED Difficulty w/ Childcare or Family Care: No Living arrangements: with family Occupation/Education: unemployed Gender identity (if verbalized by the patient): Female Sexual Orientation (if Verbalized by the Patient): Straight or Heterosexual Spiritual care concerns: No Exam Narrative: GENERAL: Well-appearing, well-nourished, and in no acute distress. HEAD: Normocephalic, atraumatic. EYES: PERRLA and EOMI. ENT: Nares clear, no rhinorrhea or epistaxis. Mucous membranes moist. NECK: Supple. Mild tenderness to palpation midline no step-off CHEST: Clear to auscultation. No respiratory distress. HEART: Regular rate and rhythm. No murmur heard. Normal peripheral pulses. ABDOMEN: Soft, nontender, nondistended, normal active bowel sounds. EXTREMITIES: Normal range of motion. Tenderness to palpation of the right shoulder No edema. SKIN: Warm, dry, no rash. NEURO: No focal deficits. Alert and oriented x3. PSYCH: Normal mood and affect. Course Vital Signs Vital signs: Vital Signs Temperature 36.7 C 01/04/24 18:58 Pulse Rate 112 H 01/04/24 18:58 Respiratory Rate 20 01/04/24 18:58 Blood Pressure 143/107 H 01/04/24 18:58 Pulse Oximetry 98 01/04/24 18:58 Oxygen Delivery Room Air 01/04/24 18:58 Temperature 36.7 C 01/04/24 18:58 Pulse Rate 112 H 01/04/24 18:58 Respiratory Rate 20 01/04/24 18:58 Blood Pressure 143/107 H 01/04/24 18:58 Pulse Oximetry 98 01/04/24 18:58 Oxygen Delivery Room Air 01/04/24 18:58 Medical Decision Making MDM Narrative Medical decision making narrative: Differential diagnosis incl
[2024-01-04] MEDS: oxyCODONE/ACETAMINOPHEN (*CRX) 5-325 MG TABLET 1 TABLET PO (20:41)
== END 2024-01-04 21:10 | disposition home or self-care (01) ==
PROVIDERS: Emergency Provider Emergency Medicine
DX: S09.90XA Unspecified injury of head, initial encounter (principal); S40.011A Contusion of right shoulder, initial encounter; W01.0XXA Fall on same level from slipping, tripping and stumbling without subsequent striking against object, initial encounter; I10 Essential (primary) hypertension; Z85.43 Personal history of malignant neoplasm of ovary; Z79.51 Long term (current) use of inhaled steroids
CPT/HCPCS: 70450; 72125; 73030; 99284; A9270

== ENCOUNTER 2024-03-09 13:55 | Emergency (ER) | payer OTHER, SELFPAY ==
[2024-03-09 14:01] VITALS: BP 148/94; PULSE 78; RESP 20; TEMP 36.7; O2SAT 99
--- NOTE | 2024-03-09 14:16 | PC.NURSE ---
pt seen being wheeled out of dept to car
== END 2024-03-09 16:08 | disposition left against medical advice (07) ==
LOC: ANHED 14:18
DX: S29.9XXA Unspecified injury of thorax, initial encounter (principal)
CPT/HCPCS: 99199

== ENCOUNTER 2024-03-12 15:16 | Emergency (ER) | payer OTHER, SELFPAY ==
--- NOTE | ~2024-03-12 | CT_ITS ---
EXAMINATION: CT thoracic spine wo con DATE: 03/12/2024 16:38 INDICATION: Medial back pain post injury TECHNIQUE: Computed tomography (CT) of the thoracic spine was performed without intravenous contrast. Automated exposure control and iterative reconstruction technique were employed. The dose-length pro duct was 703.41 mGy-cm. COMPARISON: Thoracic spine radiographs dated 06/28/[address] dated 12/30/2019 FINDINGS: A degree thoracic dextrocurvature. Sagittal alignment is normal. Chronic mild anterior wedging at T7 and T8. Chronic mild superior endplate compression fracture at T12 since 2023 which can be seen on ra diographs dated 06/28/2022. Moderate disc height loss at and T4-T5 through T7-T8 and mild disc height loss at the remaining levels from T2-T3 through T10-T11. Severe bilateral facet osteoarthritis at T2- T3. Additional mild to moderate facet osteoarthritis in the upper thoracic spine and minimal to mild facet osteoarthritis in the mid to lower thoracic spine. Chronic small central disc protrusion result ing in mild central canal stenosis at T6-T7. Remainder of the central canal is widely patent. No sign ificant neural foraminal stenosis. Visualized portion of the lungs are clear. Visualized heart, aorta , mediastinum and upper abdomen are unremarkable. IMPRESSION: 1. 8 degree thoracic dextrocurvature with chronic mild compression fractures at T7, T8 and T12. No ac [place] osseous abnormality. 2. Mild to moderate thoracic spondylosis. Reviewed, dictated and finalized at location A. RAMMER ANALYST IMPRESSION: 1. 8 degree thoracic dextrocurvature with chronic mild compression fractures at T7, T8 and T12. No acute osseous abnormality. 2. Mild to moderate thoracic spondylosis.
[2024-03-12 15:20] VITALS: BP 134/74; PULSE 80; RESP 18; TEMP 36.4; O2SAT 99
[2024-03-12] MEDS: LIDOCAINE 5% PATCH 1 PATCH TRANSDERM (17:07)
[2024-03-12] MEDS: diazePAM INJ (*CRX) 10 MG/2 ML SYRINGE 5 MG IM (17:07)
--- NOTE | 2024-03-12 17:08 | ED.FALL ---
HPI - Fall General Chief Complaint: Fall Stated Complaint: fell Time Seen by Provider: 03/12/24 16:24 History of Present Illness HPI Narrative: Patient's new dog jumped on her and she fell against her dresser/floor; large bruise to midback, has been hurting especially with movement. no new focal numbness or weakness, does have chronic radiculopathy Related Data Home Medications ?Medication ?Instructions ?Recorded ?Confirmed ?Last Taken ?Type lisinopril 10 mg tablet 10 mg PO DAILY 02/19/19 11/08/22 Unknown History Allergies Allergy/AdvReac Type Severity Reaction Status Date / Time codeine AdvReac Mild N/V Verified 01/04/24 19:05 hydrocodone AdvReac Unknown Nausea Verified 01/04/24 19:05 NSAIDS (Non-Steroidal AdvReac Unknown Nausea Verified 01/04/24 19:05 Anti-Inflamma CORTICOSTEROIDS AdvReac Unknown NAUSEA AND Uncoded 01/04/24 19:05 VOMITING Review of Systems Review of Systems: All systems reviewed & are unremarkable except as noted in HPI and below PMFSH Past Medical History Medical History Abnormal uterine bleeding DDD (degenerative disc disease) L-Spine Fibroid Hx of ovarian cancer hysterectomy with oophorectomy in 2003 Hypertension Kidney failure Migraine Right elbow pain Surgical History Surgical History H/O tubal ligation History of History of hysterectomy hx of oviarian cancer in 2003 Family History Family History Mother Diabetes mellitus Other Hypertension Social History Social History Smoking status: Never smoker Alcohol intake: never Substance use: never Lack of Transportation: No Lack of Food: Sometimes True Current Housing: I Have Housing Concerned About Future Housing: YES Difficulty Paying Gas/Electric Bills: YES Difficulty Paying for Meds: No Currently Unemployed: No Education: High School Diploma/GED Difficulty w/ Childcare or Family Care: No Living arrangements: with family Occupation/Education: unemployed Gender identity (if verbalized by the patient): Female Sexual Orientation (if Verbalized by the Patient): Straight or Heterosexual Spiritual care concerns: No Exam Narrative: EXAMINATION OF ORGAN SYSTEMS/BODY AREAS: Constitutional: Vital signs per nursing GENERAL: Appears uncomfortable HEAD: Normal with no signs of head trauma. EYES: EOMI, conjunctiva normal ENT: Hearing grossly intact LUNGS: Nonlabored breathing. HEART: [Regular rate and rhythm] ABD: [Soft], [nontender to palpation] EXT: Normal range of motion SKIN: large bruising midback NEURO: [Alert and oriented x 3. No gross focal sensory or strength deficits.] PSYCH: Normal affect Course Vital Signs Vital signs: Vital Signs Temperature 97.6 F 03/12/24 15:20 Pulse Rate 80 03/12/24 15:20 Respiratory Rate 18 03/12/24 15:20 Blood Pressure 134/74 03/12/24 15:20 Pulse Oximetry 99 03/12/24 15:20 Oxygen Delivery Room Air 03/12/24 15:20 Temperature 97.6 F 03/12/24 15:20 Pulse Rate 80 03/12/24 15:20 Respiratory Rate 18 03/12/24 15:20 Blood Pressure 134/74 03/12/24 15:20 Pulse Oximetry 99 03/12/24 15:20 Oxygen Delivery Room Air 03/12/24 15:20 MDM - Fall MDM Narrative Medical decision making narrative: patient presenting with bruising and tenderness to mid back, after fall several days ago. No new neurologic deficits, there is a large bruise, she would like to have a CT to rule out bony injury. This shows chronic compression fractures but no new fracture. Ice pack, Valium, lidocaine patch given, given her many allergies to different medications. Will have her follow-up with neurosurgery and return for any further issues. Discharge Plan Discharge Clinical Impression: Back injury Patient Disposition: Home, Self-Care Condition: Stable Instructions: Contusion in Adults (ED) Additional Instructions: Please follow up with your doctor; you can always return for any further issues. Patient Language: Armenian Prescriptions: New lidocaine 5 % adhesive patch,medicated 1 patch topical DAILY Qty: 15 0RF Rx Instructions: leave on most painful area for up to 12 hrs methocarbamol 750 mg tablet 750 mg PO TID PRN (Reason: muscle spasm) Qty: 30 0RF No Action lisinopril 10 mg tablet 10 mg PO DAILY tramadol 50 mg tablet 50 mg PO Q6H MDD 4 tabs PRN (Reason: pain) Qty: 14 0RF benzonatate 100 mg capsule 100 mg PO TID PRN (Reason: cough) Qty: 20 0RF albuterol sulfate 90 mcg/actuation HFA aerosol inhaler 1 inh inhalation QID PRN (Reason: shortness of breath or wheezing) Qty: 6.7 0RF Follow-up/Referrals: Jamia Hill MD [Physician] - 2 Days UNKNOWN,DOCTOR [Primary Care Provider] -
[2024-03-12 17:18] VITALS: BP 129/84; PULSE 81; RESP 18; TEMP 36.8; O2SAT 100
== END 2024-03-12 17:18 | disposition home or self-care (01) ==
PROVIDERS: Emergency Provider Emergency Medicine
DX: S29.9XXA Unspecified injury of thorax, initial encounter (principal); W22.03XA Walked into furniture, initial encounter; Z85.43 Personal history of malignant neoplasm of ovary; I10 Essential (primary) hypertension
CPT/HCPCS: 72128; 96372; 99284; A9270; J3360

== ENCOUNTER 2024-04-20 14:42 | Emergency (ER) | payer OTHER, SELFPAY ==
--- NOTE | ~2024-04-20 | CT_ITS ---
EXAMINATION: CTA chest PE protocol DATE: 04/20/2024 17:01 NURSE AUDITOR INDICATION: Shortness of breath and wheezing TECHNIQUE: Computed tomographic angiography (CTA) of the chest was performed with 100 mL Omnipaque-35 0 intravenous contrast. The dose-length product was 356.39 mGy-cm. Maximum intensity projection 3D-re constructions of the aorta and other arteries were constructed by the technologist on a separate work station. COMPARISON: Reference is made to a plain film evaluation of the chest dated 12/09/2022. FINDINGS: No filling defect is identified within the main or proximal pulmonary arteries. The main pulmonary artery is not enlarged. The thoracic aorta is nonaneurysmal and no dissection is appreciated. Small hiatal hernia is noted. The heart is of normal size, without pericardial effusion. Trace bibasilar dependent atelectasis. Within the upper abdomen: The gallbladder is distended, and otherwise unremarkable. The bilateral adrenal glands are unremarkable in their course and contour. IMPRESSION: No pulmonary embolus. No aortic dissection Small hiatal hernia. Trace bibasilar dependent atelectasis. Reviewed, dictated and finalized at location A. E AUDITOR
[2024-04-20 14:50] VITALS: BP 145/98; PULSE 92; RESP 30; TEMP 36.4; O2SAT 100
--- NOTE | 2024-04-20 14:57 | ECG_ITS ---
Test Date: 2024-04-20 15:22:46 Measurements Intervals [place] Rate: 85 P: 1 IA: 160 QRS: -17 QRSD: 96 T: -3 QT: 373 QTc: 445 Interpretive Statements SINUS RHYTHM POSSIBLE LEFT ATRIAL ENLARGEMENT [-0.1mV P-WAVE IN V1/V2] POSSIBLE LEFT VENTRICULAR HYPERTROPHY [VOLTAGE CRITERIA PLUS LAE OR QRS WIDENING] No previous ECG available for comparison Electronically Signed On 04-20-2024 17:57:24 INSTRUMENTAL MUSICIAN by Roosevelt Mistry M.D.
--- NOTE | 2024-04-20 14:59 | ED.SOB ---
HPI - SOB/Dyspnea General Chief Complaint: Shortness of Breath/Dyspnea <Komal Preston APRN - Last Filed: 04/21/24 12:05> Stated Complaint: shortness of breath <Komal Preston APRN - Last Filed: 04/21/24 12:05> Time Seen by Provider: 04/20/24 14:50 <Komal Preston APRN - Last Filed: 04/21/24 12:05> Focused HPI: Patient is a 48-year-old female who presents to the ER with shortness of breath. She reports her symptoms started approximately 4 days ago. Patient reports she has no history of asthma or or COPD. She does have a history of CKD and high blood pressure. Patient is having difficulty completing sentences due to her inability to catch her breath. She reports she called her primary care provider approximately 2 weeks ago who prescribed inhaler. Patient denies chest pain, back pain, abdominal pain, recent fevers. GENERAL: Ill-appearing, well-nourished, and in acute distress d/t inability to breath. HEAD: Normocephalic, atraumatic. CHEST: Wheezing to auscultation. ?+ respiratory distress. HEART: Regular rate and rhythm.? NEURO: ?Alert and oriented x3. Patient screened in triage and initial orders placed.? ?Additional care and disposition to be based upon?diagnostic testing and treatment. <Komal Preston APRN - Last Filed: 04/21/24 12:05> History of Present Illness HPI Narrative: I agree with the above HPI <Kenneth Daley MD - Last Filed: 04/21/24 17:40> Related Data Home Medications: Home Medications ?Medication ?Instructions ?Recorded ?Confirmed ?Last Taken ?Type lisinopril 10 mg tablet 10 mg PO DAILY 02/19/19 11/08/22 Unknown History <Komal Preston APRN - Last Filed: 04/21/24 12:05> Allergies/Adverse Reactions: Allergies Allergy/AdvReac Type Severity Reaction Status Date / Time codeine AdvReac Mild N/V Verified 01/04/24 19:05 hydrocodone AdvReac Unknown Nausea Verified 01/04/24 19:05 NSAIDS (Non-Steroidal AdvReac Unknown Nausea Verified 01/04/24 19:05 Anti-Inflamma CORTICOSTEROIDS AdvReac Unknown NAUSEA AND Uncoded 01/04/24 19:05 VOMITING <Komal Preston APRN - Last Filed: 04/21/24 12:05> Review of Systems Review of Systems: All systems reviewed & are unremarkable except as noted in HPI and below <Kenneth Daley MD - Last Filed: 04/21/24 17:40> [facility] Past Medical History Medical History: Medical History Abnormal uterine bleeding DDD (degenerative disc disease) L-Spine Fibroid Hx of ovarian cancer hysterectomy with oophorectomy in 2003 Hypertension Kidney failure Migraine Right elbow pain <Komal Preston APRN - Last Filed: 04/21/24 12:05> Surgical History Surgical History: Surgical History H/O tubal ligation History of History of hysterectomy hx of oviarian cancer in 2003 <Komal Preston APRN - Last Filed: 04/21/24 12:05> Family History Family History: Family History Mother Diabetes mellitus Other Hypertension <Komal Preston APRN - Last Filed: 04/21/24 12:05> Social History Social History: Social History Smoking status: Never smoker Alcohol intake: never Substance use: never Lack of Transportation: No Lack of Food: Sometimes True Current Housing: I Have Housing Concerned About Future Housing: YES Difficulty Paying Gas/Electric Bills: YES Difficulty Paying for Meds: No Currently Unemployed: No Education: High School Diploma/GED Difficulty w/ Childcare or Family Care: No Living arrangements: with family Occupation/Education: unemployed Gender identity (if verbalized by the patient): Female Sexual Orientation (if Verbalized by the Patient): Straight or Heterosexual Spiritual care concerns: No <Komal Preston APRN - Last Filed: 04/21/24 12:05> Exam Narrative: APPEARANCE: Ill-appearing HEAD: normocephalic, atraumatic. EYES: PERRLA/EOMI, conjunctivae clear. NOSE: Normal no drainage EARS:TMS clear with good light reflex. THROAT: Pharynx clear, no exudate. NECK: Supple. No adenopathy, no masses. RESPIRATORY: Significant wheezing CARDIOVASCULAR: Regular rate and rhythm without murmurs rubs or gallops. ABDOMINAL: Soft, nontender, nondistended, normal bowel sounds MUSCULOSKELETAL: Moves all extremities. Strength/ROM intact, No edema, No calf tenderness. NEURO: Alert. Cranial nerves II through XII intact. Good gait. Good coordination SKIN: Warm, dry. Normal Color <Kenneth Daley MD - Last Filed: 04/21/24 17:40> Course Vital Signs Vital signs: Vital Signs Temperature 97.6 F 04/20/24 14:50 Pulse Rate 92 04/20/24 14:50 Respiratory Rate 30 H 04/20/24 14:50 Blood Pressure 145/98 H 04/20/24 14:50 Pulse Oximetry 100 04/20/24 14:50 Oxygen Delivery Room Air 04/20/24 14:50 Temperature 97.6 F 04/20/24 14:50 Pulse Rate 92 04/20/24 14:50 Respiratory Rate 30 H 04/20/24 14:50 Blood Pressure 145/98 H 04/20/24 14:50 Pulse Oximetry 100 04/20/24 15:21 Oxygen Delivery Room Air 04/20/24 15:21 <Komal Preston APRN - Last Filed: 04/21/24 12:05> Vital Signs Temperature 97.6 F 04/20/24 14:50 Pulse Rate 92 04/20/24 14:50 Respiratory Rate 30 H 04/20/24 14:50 Blood Pressure 145/98 H 04/20/24 14:50 Pulse Oximetry 100 04/20/24 14:50 Oxygen Delivery Room Air 04/20/24 14:50 Temperature 97.6 F 04/20/24 14:50 Pulse Rate 92 04/20/24 14:50 Respiratory Rate 30 H 04/20/24 14:50 Blood Pressure 145/98 H 04/20/24 14:50 Pulse Oximetry 100 04/20/24 15:21 Oxygen Delivery Room Air 04/20/24 15:21 <Kenneth Daley MD - Last Filed: 04/21/24 17:40> MDM - SOB/Dyspnea MDM Narrative Medical decision making narrative: 48-year-old female present to the emergency department for evaluation for shortness of breath. Patient did have significant wheeze upon arrival emergency department. Patient's wheeze was resolved after an extended albuterol. CTA was negative for pulmonary embolism. No evidence of pneumonia, patient was updated on the results the workup and did feel improved with treatment. Patient was discharged home with Tessalon Perles and albuterol. All questions concerns were addressed. Patient was encouraged to return the emergency department if she had worsening symptoms. <Kenneth Daley MD - Last Filed: 04/21/24 17:40> Differential Diagnosis Differential diagnosis: Likely acute exacerbation of chronic obstructive airways disease, congestive heart failure, community acquired pneumonia, asthma with exacerbation and pulmonary embolism <Kenneth Daley MD - Last Filed: 04/21/24 17:40> Lab Data Attestation: I reviewed the patient's lab results. <Kenneth Daley MD - Last Filed: 04/21/24 17:40> Result diagrams: 04/20/24 15:24 04/20/24 15:24 <Komal Preston APRN - Last Filed: 04/21/24 12:05> Labs: Lab Results 04/20/24 04/20/24 Range/Units 15:24 15:25 WBC 8.9 (4.5-10.0) K/mm3 RBC 4.86 (4.2-5.4) M/mm3 Hgb 15.6 H (12.0-15.0) g/dL Hct 46.5 (37.0-47.0) % MCV 95.7 (80-100) fl MCH 32.1 (26-34) pg MCHC 33.5 (32-36) g/dl RDW 13.2 (11.5-14.5) % Plt Count 224 (150-375) k/mm3 MPV 9.7 (7.4-10.4) fl Immature Gran % (Auto) 0.2 (0-0.5) % Neut % (Auto) 52.6 (45.5-73.1) % Lymph % (Auto) 33.7 (18.3-44.2) % [place] % (Auto) 9.4 H (2.6-8.5) % Eos % (Auto) 3.5 (0-4.4) % Baso % (Auto) 0.6 (0.2-1.2) % Lymph # (Auto) 2.99 (0.9-3.2) K/mm3 [place] # (Auto) 0.8 H (0.1-0.6) K/mm3 Eos # (Auto) 0.3 (0-0.3) K/mm3 Baso # (Auto) 0.1 (0.0-0.1) K/mm3 Abs Immat Gran (auto) 0.02 (0.00-0.031) K/mm3 Absolute Neuts (auto) 4.7 (1.3-6.7) K/mm3 Absolute Nucleated RBC 0.000 (0.0-0.012) K/mm3 Nucleated RBC % 0.0 (0.0-0.2) % PT 13.2 (11.1-14.7) Seconds INR 1.0 APTT 28.9 (22.3-36.8) Seconds Sodium 141 (137-145) mmol/L Potassium 3.7 (3.4-5.0) mmol/L Chloride 106 (98-107) mmol/L Carbon Dioxide 21 L (22-30) mmol/L Anion Gap 14 H (4-12) mmol/L BUN 10 (7-17) mg/dL Creatinine 0.90 (0.7-1.0) mg/dL Estim Creat Clear Calc 68 ml/min Estimated GFR > 60 (59 - ) Glucose 104 (65-110) mg/dL Calcium 9.0 (8.4-10.2) mg/dL Magnesium 2.2 (1.6-2.3) mg/dL Total Bilirubin 0.8 (0.2-1.3) mg/dL AST 28 (14-36) U/L ALT 20 (6-35) U/L Alkaline Phosphatase 93 (38-126) U/L Troponin I < 0.012 (0.000-0.034) ng/mL Total Protein 8.0 (6.3-8.2) g/dL Albumin 4.2 (3.5-5.1) g/dL Influenza A (RT-PCR) Negative (Negative) Influenza B (RT-PCR) Negative (Negative) RSV (RT-PCR) Negative (Negative) SARS-CoV-2 RNA (RT-PCR) Negative (Negative) <Komal KongDoni Preston, LINUX UNIX ADMINISTRATOR - Last Filed: 04/21/24 12:05> Lab Results 04/20/24 04/20/24 Range/Units 15:24 15:25 WBC 8.9 (4.5-10.0) K/mm3 RBC 4.86 (4.2-5.4) M/mm3 Hgb 15.6 H (12.0-15.0) g/dL Hct 46.5 (37.0-47.0) % MCV 95.7 (80-100) fl MCH 32.1 (26-34) pg MCHC 33.5 (32-36) g/dl RDW 13.2 (11.5-14.5) % Plt Count 224 (150-375) k/mm3 MPV 9.7 (7.4-10.4) fl Immature Gran % (Auto) 0.2 (0-0.5) % Neut % (Auto) 52.6 (45.5-73.1) % Lymph % (Auto) 33.7 (18.3-44.2) % [place] % (Auto) 9.4 H (2.6-8.5) % Eos % (Auto) 3.5 (0-4.4) % Baso % (Auto) 0.6 (0.2-1.2) % Lymph # (Auto) 2.99 (0.9-3.2) K/mm3 [place] # (Auto) 0.8 H (0.1-0.6) K/mm3 Eos # (Auto) 0.3 (0-0.3) K/mm3 Baso # (Auto) 0.1 (0.0-0.1) K/mm3 Abs Immat Gran (auto) 0.02 (0.00-0.031) K/mm3 Absolute Neuts (auto) 4.7 (1.3-6.7) K/mm3 Absolute Nucleated RBC 0.000 (0.0-0.012) K/mm3 Nucleated RBC % 0.0 (0.0-0.2) % PT 13.2 (11.1-14.7) Seconds INR 1.0 APTT 28.9 (22.3-36.8) Seconds Sodium 141 (137-145) mmol/L Potassium 3.7 (3.4-5.0) mmol/L Chloride 106 (98-107) mmol/L Carbon Dioxide 21 L (22-30) mmol/L Anion Gap 14 H (4-12) mmol/L BUN 10 (7-17) mg/dL Creatinine 0.90 (0.7-1.0) mg/dL Estim Creat Clear Calc 68 ml/min Estimated GFR > 60 (59 - ) Glucose 104 (65-110) mg/dL Calcium 9.0 (8.4-10.2) mg/dL Magnesium 2.2 (1.6-2.3) mg/dL Total Bilirubin 0.8 (0.2-1.3) mg/dL AST 28 (14-36) U/L ALT 20 (6-35) U/L Alkaline Phosphatase 93 (38-126) U/L Troponin I < 0.012 (0.000-0.034) ng/mL Total Protein 8.0 (6.3-8.2) g/dL Albumin 4.2 (3.5-5.1) g/dL Influenza A (RT-PCR) Negative (Negative) Influenza B (RT-PCR) Negative (Negative) RSV (RT-PCR) Negative (Negative) SARS-CoV-2 RNA (RT-PCR) Negative (Negative) <Kenneth Daley MD - Last Filed: 04/21/24 17:40> Discharge Plan Discharge Clinical Impression: Bronchitis <Komal Preston APRN - Last Filed: 04/21/24 12:05> Patient Disposition: Home, Self-Care <Komal Preston APRN - Last Filed: 04/21/24 12:05> Condition: Stable <Komal Preston APRN - Last Filed: 04/21/24 12:05> Instructions: Antibiotic Form, Wheezing (ED) <Komal Preston APRN - Last Filed: 04/21/24 12:05> Additional Instructions: Prednisone as directed until completed. Albuterol inhaler with spacer as directed. Have close follow-up with your primary care physician. If you have any worsening symptoms then please call or return to the emergency department. <Komal Preston APRN - Last Filed: 04/21/24 12:05> Patient Language: Kinyarwanda <Komal Preston APRN - Last Filed: 04/21/24 12:05> Prescriptions: New albuterol sulfate 90 mcg/actuation HFA aerosol inhaler 1 puff inhalation QID Qty: 6.7 0RF prednisone 50 mg tablet 50 mg PO DAILY 5 Days Qty: 5 0RF No Action lisinopril 10 mg tablet 10 mg PO DAILY lidocaine 5 % adhesive patch,medicated 1 patch topical DAILY Qty: 15 0RF Rx Instructions: leave on most painful area for up to 12 hrs methocarbamol 750 mg tablet 750 mg PO TID PRN (Reason: muscle spasm) Qty: 30 0RF tramadol 50 mg tablet 50 mg PO Q6H MDD 4 tabs PRN (Reason: pain) Qty: 14 0RF benzonatate 100 mg capsule 100 mg PO TID PRN (Reason: cough) Qty: 20 0RF albuterol sulfate 90 mcg/actuation HFA aerosol inhaler 1 inh inhalation QID PRN (Reason: shortness of breath or wheezing) Qty: 6.7 0RF <Komal Preston APRN - Last Filed: 04/21/24 12:05> Follow-up/Referrals: UNKNOWN,DOCTOR [Primary Care Provider] - <Komal Preston APRN - Last Filed: 04/21/24 12:05>
[2024-04-20 15:21] VITALS: O2SAT 100
[2024-04-20 15:32] LABS: Basophils Absolute Auto 0.1 K/mm3 (0.0-0.1); Basophils Percent Auto 0.6 % (0.2-1.2); Eosinophils Absolute Auto 0.3 K/mm3 (0-0.3); Eosinophils Percent Auto 3.5 % (0-4.4); Hematocrit 46.5 % (37.0-47.0); Hemoglobin 15.6 g/dL (12.0-15.0); Immature Granulocyte Absolute 0.02 K/mm3 (0.00-0.031); Immature Granulocyte Percent A 0.2 % (0-0.5); Lymphocytes Absolute Auto 2.99 K/mm3 (0.9-3.2); Lymphocytes Percent Auto 33.7 % (18.3-44.2); Mean Corpuscular HGB Conc 33.5 g/dl (32-36); Mean Corpuscular Hemoglobin 32.1 pg (26-34); Mean Corpuscular Volume 95.7 fl (80-100); Mean Platelet Volume 9.7 fl (7.4-10.4); Monocytes Absolute Auto 0.8 K/mm3 (0.1-0.6); Monocytes Percent Auto 9.4 % (2.6-8.5); Neutrophils Absolute Auto 4.7 K/mm3 (1.3-6.7); Neutrophils Percent Auto 52.6 % (45.5-73.1); Platelet Count Result 224 k/mm3 (150-375); Red Blood Count 4.86 M/mm3 (4.2-5.4); Red Cell Distribution Width 13.2 % (11.5-14.5); White Blood Count 8.9 K/mm3 (4.5-10.0)
[2024-04-20] MEDS: dexAMETHasone SOD PHOS INJ 10 MG/ML 1 ML VIAL IV PUSH (15:36)
[2024-04-20] MEDS: ALBUTEROL SULFATE NEB 2.5 MG/3 ML INH 5 MG INHALATION (15:39)
[2024-04-20] MEDS: IPRATROPIUM 0.5 MG/ALBUTEROL SULFATE 2.5 MG AMPUL.NEB 3 ML INHALATION ×3 (15:40)
[2024-04-20 15:57] LABS: Alanine Aminotransferase 20 U/L (6-35); Albumin Level 4.2 g/dL (3.5-5.1); Alkaline Phosphatase 93 U/L (38-126); Anion Gap 14 mmol/L (4-12); Aspartate Amino Transferase 28 U/L (14-36); Bilirubin,Total 0.8 mg/dL (0.2-1.3); Blood Urea Nitrogen 10 mg/dL (7-17); Carbon Dioxide 21 mmol/L (22-30); Chloride 106 mmol/L (98-107); Estimated CRCL calculation 68 ml/min; Estimated Glomerular Filt Rate > 60; Glucose 104 mg/dL (65-110); Magnesium 2.2 mg/dL (1.6-2.3); Potassium 3.7 mmol/L (3.4-5.0); Prothrombin Time 13.2 Seconds (11.1-14.7); Sodium 141 mmol/L (137-145)
[2024-04-20 15:59] LABS: Partial Thromboplastin Time 28.9 Seconds (22.3-36.8)
[2024-04-20 16:08] LABS: Influenza A QL RT-PCR Negative (Negative); Influenza B QL RT-PCR Negative (Negative); RSV RNA, RT-PCR Negative (Negative); SARS-CoV-2 RNA PCR Negative (Negative)
[2024-04-20 16:08] LABS: Troponin I < 0.012 ng/mL (0.000-0.034)
[2024-04-20] MEDS: predniSONE 20 MG TABLET 40 MG PO (19:06)
--- OUTSIDE RECORDS SUMMARY | 2024-04-23 14:10 | XMS_ITS | Referral Summary ---
Author Organization [facility] [employer] Address [address] [place] [address] Care Team Providers Care Icing Mixer Name Role Phone Riojonathan Juanpablo Pinedo DO Unavailable [phone] Gladis Hinojosa PA-C Primary Care Provider [phone] Source Comments [facility],non-owned Affiliates and Associated Physician Practices is amultiple site organization consisting of ambulatory clinics and hospital sitesin [place], [place], [place] and [place]. This disclosure is being madepursuant to the Care Everywhere program and may not contain all information available regarding this patient. Last updated 17.[facility] [employer] Allergies Active Allergy Reactions Criticality Noted Date Comments Codeine GI Discomfort 04/21/2014 Hydrocodone GI Discomfort 04/21/2014 Corticosteroids GI Discomfort 04/21/2014 Medications * Be aware that medications may not be up to date on this document. Alwaysverify current medications with the patient. Medication Sig Dispensed Refills Start Date End Date Status lisinopril (PRINIVIL; ZESTRIL) 2.5 MG tablet TK 1 T PO D 11 06/16/2017 Active oxybutynin (DITROPAN) 5 MG tablet Take 1 tablet by mouth 3 times daily 90 tablet 11 10/01/2019 Active Active Problems Problem Noted Date Diagnosed Date Chronic pain of right knee 05/11/2019 Syncope 05/11/2019 Neck pain 01/11/2019 Pelvic pain 11/13/2018 OAB (overactive bladder) 08/19/2017 Frequent falls 08/15/2017 Morbid obesity with BMI of 50.0-59.9, adult 07/30 Stress incontinence, female 08/08/2017 Urge incontinence 08/08/2017 Frequency of micturition 08/08/2017 Rectocele 08/08/2017 Cystocele, midline 08/08/2017 Myofascial pain 08/08/2017 Head contusion 09/19/2014 Social History Tobacco Use Types Packs/Day Years Used Date Smoking Tobacco: Never Smokeless Tobacco: Never Alcohol Use Standard Drinks/Week Comments Yes 0 (1 standard drink = 0.6 oz pur e alcohol) rarely Sex and Gender Information Value Date Recorded Sex Assigned at Not on file Gender Identity Not on file Sexual Orientation Not on file Last Filed Vital Signs Vital Sign Reading Time Taken Comments Blood Pressure 116/74 05/11/2019 9:05 AM FIFTH HAND Pulse 68 05/11/2019 9:05 AM FIFTH HAND Temperature 37 ??C (98.6 ??F) 01/30/2017 2:12 PM CDT Respiratory Rate 18 01/30/2017 2:12 PM CDT Oxygen Saturation 99% 02/09/2016 6:08 PM FIFTH HAND Inhaled Oxygen Concentration - - Weight 96.3 kg (212 lb 6.4 oz) 10/01/2019 8:25 A M CDT Height 144.8 cm (4' 9 ) 05/11/2019 9:05 AM FIFTH HAND Body Mass Index 45.96 05/11/2019 9:05 AM FIFTH HAND Plan of Treatment Not on file Procedures Procedure Name Priority Date/Time Associated Diagnosis Comments MAMMO BILAT SCREENING Routine 01/24/2016 12:16 PM CDT Visit for screening mammogram from Last 3 Months or Most Recently Relevant to Health Maintenance Results * MAMM SCREENING DIGITAL IMAGE BILAT G0202 (01/24/2016 12:16 PM CDT) Anatomical Region Laterality Modality Breast Bilateral Mammography 01/25/2016 9:02 AM CDT Narrative 01/25/2016 9:06 AM CDT Breast composition: almost entirely fatty Body of report: No comparison exams or reports are available to me, at this institution, at the time of interpretation. This is the patient's baseline exam. These images were interpreted with the aid of CAD. 3-D tomosynthesis was utilized in the interpretation of this exam. There are no spiculated lesions or areas of architectural distortion. No suspicious calcifications are seen. BI-RADS assessment category: Category one, negative. Recommendation: Return to annual mammograms, or earlier if clinically indicated. The patient was unable to complete the computerized risk assessment but according to the history sheet, her mother had breast cancer. Therefore, strongly recommend completion of risk assessment in order to determine future imaging strategy. Jenny Joseph Perico MANAGER ONCOLOGY-OCULAR CARE TECHNICIAN MAMMO ORDERABL ES from Last 3 Months or Most Recently Relevant to Health Maintenance Care Teams Icing Mixer Relationship Specialty Start Date End Date Gladis Hinojosa PA-C PCP - General 10/01/19 Juanpablo Sifuentes DO Orthopedic Surgery 11/03/15
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
--- OUTSIDE RECORDS SUMMARY | 2024-04-23 14:10 | XMS_ITS | CONTINUITY OF CARE DOCUMENT ---
Author Name sabra montaño Address Unknown Organization [facility] Address [address] [facility] [address] [place] [address] Phone [phone] Care Team Providers Care Food Equipment Service Technician Name Role Phone Bert Garcia MD Unavailable Bert Garcia MD Unavailable INSURANCE PROVIDERS Payer name Policy type / Coverage type [employer] party ID [employer] MEDICAID (2) Medicaid [id number]
--- OUTSIDE RECORDS SUMMARY | 2024-04-23 14:10 | XMS_ITS | Referral Summary ---
Author Organization [place] [id number] Address [address] [place] [id number] Care Team Providers Care Diamond Wheel Edger Name Role Phone Giles Plascencia MD Unavailable [phone] Allergies Active Allergy Reactions Criticality Noted Date Comments Codeine Nausea only Low 11/16/2019 Hydrocodone Nausea only Low 11/16/2019 Prednisone Hives Medium 11/16/2019 All steroids Medications benzonatate (TESSALON) 100 mg capsuleIndicati ons:Cough Take 1 capsule (100 mg total) by mouth 3 (three) times a day as needed for cough 30 capsule 12/26/2022 Active lisinopriL (PRINIVIL,ZESTR IL) 10 mg tablet Take 1 tablet (10 mg total) by mouth daily 90 tablet 1 12/26/2022 Active Active Problems Problem Noted Date Diagnosed Date Acute cough 12/26/2022 Assessment & Plan (12/26/2022 9:37 AM CDT): Afebrile, O2 sats WNL, lunch CTAB. DDx: Viral vs post nasal drip from [place] vs GERD vs medication side effect Continue conservative care Tessalon Perles TID prn Monitor and will reeval at f/u 4 weeks Chronic pain of right knee 12/26/2022 Assessment & Plan (12/26/2022 9:38 AM CDT): Chronic without radiation. No red flag symptoms. DDx: OA versus chondromalacia - Tylenol 500-1000mg q6h or Ibuprofen 800mg q8h prn pain. Counseled on risk of liver and/or kidney injury with prolonged use of medication. - Ice/Heat to affected area prn - Plain films to eval - RTC 4 for f/u Insomnia 12/26/2022 Assessment & Plan (12/26/2022 9:45 AM CDT): Chronic. Patient with no real establish nighttime routine Discussed sleep hygiene. Handout given. Will monitor for improvement during the next 4 weeks of strict sleep hygiene Follow-up 4 weeks. If ongoing will give a trial of trazodone Knee locking, right 11/21/2019 Assessment & Plan (11/21/2019 1:59 PM CDT): Patient states her knee locking is new. She feels this is contributing to her inability to move as well although there is a longstanding history of problems with gait imbalance. She states she has had x-rays that were negative. Refuses PT. Her exam today is essentially normal but with the history of functional problems, I want to rule out knee derangement that could be contributing to her falls and or gait difficulties. Recommend MRI without contrast to the right knee Balance problem 11/21/2019 Assessment & Plan (11/21/2019 3:07 PM CDT): See gait difficulty Other fatigue 11/21/2019 Assessment & Plan (11/21/2019 3:31 PM CDT): Probably multifactorial. Check labs and followup to re-evaluate Family history of diabetes mellitus 11/21/2019 Assessment & Plan (11/21/2019 3:31 PM CDT): Check labs Family history of elevated blood lipids 11/21/19 20 Assessment & Plan (11/21/2019 3:31 PM CDT): Check labs Breast cancer screening by mammogram 11/21/2019 Assessment & Plan (11/21/2019 3:32 PM CDT): Mammogram order provided Gait difficulty 11/21/2019 Assessment & Plan (11/21/2019 3:21 PM CDT): Patient continues to have falls resulting in injury. After extensive review of her chart from [facility], it appears her symptoms were most consistent with a functional issue. However, because she was last evaluated over 3 years ago and she continues to have injuries, I recommend that she return to the neurologist for re-evaluation to confirm/rule out organic causes of her gait abnormalities. If her concerns again are ruled functional, may benefit from further evaluation with NeuroPsych and or PT. I am going to hold off repeating all the neuro imaging and defer to neuro since she had very extensive imaging at the initial workup and other that now complaining that the knee is locking, she doesn't really have any new complaints. Will order MRI to rule out mechanical cause for knee pain as she has the perception that there is a problems with the knee that is contributing to her gait problem. Essential hypertension 11/21/2019 Assessment & Plan (12/26/2022 9:34 AM CDT): Chronic and stable. At goal < 130/80 Continue current medication. Will continue to monitor Assessment & Plan (11/21/2019 1:18 PM CDT): Bp is stable/in acceptable range for any co-morbidities. Encouraged to limit sodium intake and exercise for weight control. Stable with lisinopril. Obesity (BMI 30-39.9) 11/16/2019 Assessment & Plan (11/16/2019 10:06 AM CDT): Obesity is unchanged. Discussed the patient's BMI. The BMI is above average. BMI management plan is completed. BMI Follow-up includes: nutrition counseling, exercise counseling and education provided. OAB (overactive bladder) 11/15/2019 Assessment & Plan (11/21/2019 1:17 PM CDT): Continue per Dr. Sue/Urology. Resolved Problems Problem Noted Date Diagnosed Date Resolved Date Morbid obesity 11/16/2019 11/16/2019 Immunizations Name Administration Dates Next Due Hep A, Adult 07/25/2005 Tdap 05/31/2019,01/08/2019 Social History Tobacco Use Types Packs/Day Years Used Date Smoking Tobacco: Former Smokeless Tobacco: Never Alcohol Use Standard Drinks/Week Comments Yes 0 (1 standard drink = 0.6 oz pur e alcohol) rarely AUDIT-C Answer Date Recorded Q1: How often do you have a drink containing alc ohol? 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 Gender Identity Not on file Sexual Orientation Not on file Occupation Industry Job Start Date Job End Date unemployed Not on file Not on file Not on file Last Filed Vital Signs Vital Sign Reading Time Taken Comments Blood Pressure 104/66 12/26/2022 8:32 AM CDT Pulse 89 12/26/2022 8:32 AM CDT Temperature 36.3 ??C (97.3 ??F) 12/26/2022 8:32 AM CD T Respiratory Rate 16 12/26/2022 8:32 AM CDT Oxygen Saturation 98% 12/26/2022 8:32 AM CDT Inhaled Oxygen Concentration - - Weight 96.6 kg (213 lb) 12/26/2022 8:32 AM CDT Height 152.4 cm (5') 12/26/2022 8:32 AM CDT Body Mass Index 41.6 12/26/2022 8:32 AM CDT Plan of Treatment Not on file Insurance [facility] Member Subscriber Plan / Payer (Ef fective 2017-Present) Name:Suma Arroyo Relation to Subscriber:Self Name:Suma Arroyo Payer ID:[id number] (NAIC) Group ID:Not on file Type:MEDICAID RISK OTHER Address: [address] [place] [address] [place] [address] Member Subscriber Plan / Payer (Ef fective 2020-Present) Name:Suma Arroyo Relation to Subscriber:Self Name:Suma Arroyo Payer ID:[id number] (NAIC) Group ID:Not on file Type:MEDICAID RISK OTHER Address: [address] [place] [address] [place] [address] [facility] Care Teams Diamond Wheel Edger Relationship Specialty [place] [id number] [address] 09/15/19
--- OUTSIDE RECORDS SUMMARY | 2024-04-23 14:10 | XMS_ITS | Clinical Summary ---
Author Organization [place] [id number] Address [address] [place] [id number] Care Team Providers Care Dietetic Aide Name Role Phone Giles Plascencia MD Unavailable [phone] Allergies Active Allergy Reactions Criticality Noted Date [...] After extensive review of her chart from [facility], it appears her symptoms were [...] Due Hep A, Adult 07/25/2005 Tdap 05/31/2019,01/08/2019 Surgical History Surgery Date Site/Laterality Comments HYSTERECTOMY SECTION x 2 Medical History Medical History Date Comments Hypertension Family History Medical History Relation Name Comments Heart disease Father Hypertension Father Depression Mother Diabetes Mother Hypertension Mother Relation Name Status Comments Father Mother Social History Tobacco [...] on file 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 Gender Identity Not on file Sexual Orientation Not on file Occupation Industry Job Start Date Job End Date unemployed Not on file Not on file Not on file Obstetrics History Last Filed Vital Signs Vital Sign Reading [...] 12/26/2022 8:32 AM CDT Plan of Treatment Health Maintenance Due Date Last Done Comments Breast Cancer Screening-Mammogram 1974 Colon Cancer Screening-Colonoscopy 1974 Hepatitis C Screening 1974 Hepatitis B Screening 1992 Regular Well Visit/Exam 18-64 1992 Influenza Vaccine (#1) 2023 Depression Screening 12/27/2023 12/26/2022, 11/16/2019 DTaP/Tdap/Td Vaccine (3 - Td or Tdap) 05/30/2029 05/31/2019, 01/08/2019 Pneumococcal vaccine <65 Aged Out No longer eligible based on patient's age to complete this topic Insurance [facility] IDPA [facility] Care Teams Dietetic Aide Relationship Specialty [place] [address] [place] [address] [place] [id number] 09/15/19
--- OUTSIDE RECORDS SUMMARY | 2024-04-23 14:10 | XMS_ITS | Clinical Summary ---
Author Organization [facility] Address [address] [facility] [place] [address] Care Team Providers Care Dam Tender Assistant Name Role Phone RioJuanpablo castillo Khris DO Unavailable [phone] Gladis Hinojosa PA-C Primary Care Provider [phone] Source Comments [facility],non-owned Affiliates and Associated Physician Practices is amultiple site organization consisting of ambulatory clinics and hospital sitesin [place], [place], [place] and [place]. This disclosure is being madepursuant to the Care Everywhere program and may not contain all information available regarding this patient. Last updated 17.[facility] Allergies Active Allergy Reactions Criticality Noted Date [...] 08/08/2017 Myofascial pain 08/08/2017 Head contusion 09/19/2014 Family History Medical History Relation Name Comments Cancer - Colon Father Cancer - Breast Mother Diabetes - Type 2 Mother Cancer - Breast Sister Relation Name Status Comments Father Mother Sister Social History Tobacco Use Types Packs/Day Years [...] Comments Blood Pressure 116/74 05/11/2019 9:05 AM MANAGER OF INTERNAL AUDIT Pulse 68 05/11/2019 9:05 AM MANAGER OF INTERNAL AUDIT Temperature 37 ??C (98.6 ??F) 01/30/2017 2:12 PM CDT Respiratory Rate 18 01/30/2017 2:12 PM CDT Oxygen Saturation 99% 02/09/2016 6:08 PM MANAGER OF INTERNAL AUDIT Inhaled Oxygen Concentration - - Weight 96.3 kg (212 lb 6.4 oz) 10/01/2019 8:25 A M CDT Height 144.8 cm (4' 9 ) 05/11/2019 9:05 AM MANAGER OF INTERNAL AUDIT Body Mass Index 45.96 05/11/2019 9:05 AM MANAGER OF INTERNAL AUDIT Plan of Treatment Health Maintenance Due Date Last Done Comments COLOGUARD (AGES 45-75) - COL ON CA SCREENING 1974 COLON MONITORING 1974 COLONOSCOPY - COLON CA SCREENING 1974 CT COLONOGRAPHY - COLON CA SCREENING 1974 Colorectal Cancer Screening 1974 FIT - COLON CA SCREENING 1974 FLEX SIG - COLON CA SCREENING 1974 LIPID TESTING 1974 HIV SCREENING 1989 HEPATITIS C SCREENING 05/31/1992 DTAP/TDAP/TD VACCINES (1 - Tdap) 1993 HEPATITIS B VACCINE (1 of 3 - 19+ 3-dose series) 1993 MAMMOGRAM 01/23/2018 01/24/2016 COVID-19 VACCINE (2023-2 5 season) 2023 INFLUENZA VACCINE (#1) 2023 DEPRESSION SCREENING 04/01/2024 ZOSTER VACCINE (1 of 2) 2024 HIB VACCINE Aged Out No longer eligi ble based on patient's age to complete this topic HPV VACCINE Aged Out No longer eligi ble based on patient's age to complete this topic MENINGOCOCCAL (Group B) VACCINE Aged Out No longer eligible based on patient's age to complete this topic MENINGOCOCCAL VACCINE Aged Out No roe marysol eligible based on patient's age to complete this topic PNEUMOCOCCAL VACCINE Aged Out No long er eligible based on patient's age to complete [...] to determine future imaging strategy. 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
--- OUTSIDE RECORDS SUMMARY | 2024-04-23 14:10 | XMS_ITS | Data Portability ---
Author Organization [facility] Evin Hubbard Address [address] [place] [address] Care Team Providers Care Principal Consultant Name Role Phone LUCY MULLER Primary Care Provider Assessment No assessment recorded. Plan of Treatment Reminders Order Date Submit Date Provider Last Modified By Organization Details Last Modified Time Details Appointments NEW PATIENT 30 2024 03:00P M Khari Matias MD Not available Not available Not available Lab CMP, serum or plasma 2021 [place] [facility], [address], [place], [address], 12/20/2021 05:09:41 lipid panel, serum 2021 [place] [facility], [address], [place], [address], 12/20/2021 05:09:40 CBC w/ auto diff 2021 [place] [facility], [address], [place], [address], 12/20/2021 05:09:41 TSH + free T4, serum 2021 [place] [facility], [address], [place], [address], 12/20/2021 05:09:44 HbA1c (hemoglob in A1c), blood 2021 [place] [facility], [address], [place], [address], 12/20/2021 05:09:44 Referral physical therapist referral 2021 [facility] (Outpatient Physical Therapy), [address], [place], [address], 01/31/2022 12:37:26 Procedures None recorded. Surgeries None recorded. Imaging XR, shoulder, 2 or more view [address] (Imaging), [address] [facility] [address], [place], [address], 09/29/2021 16:09:46 XR, clavicle [address] (Imaging), [address] [facility] [address], [place], [address], 09/29/2021 16:09:46 XR, wrist 2021 [facility] (Imaging), [address] [facility] [address], [place], [address], 10/03/2021 14:27:13 Medication Orders Voltaren Arthritis Pain 1 % topical gel 2021 [facility] [place], [address], 06/23/2021 11:44:49 fluoxetin e 20 mg tablet [address] [place] [address] [facility], [address] [place], [address], 09/29/2021 15:34:37 cyclobenz aprine 5 mg tablet 2021 [facility], [address] [place], [address], 11/22/2021 12:11:43 Patient TargetsNo targets recorded. Patient Instructions Encounter Date Encounter Id Patient Instructions Last Modified By Organization Details Last Modified Time 12/19/2021 [id number] concussion: care instructions aramis Not available 12/19/2021 17:16:02 Reason for Referral Physical Therapist Referral for Weakness of right leg Referring Physician: Lucy Muller, Family Medicine, Encounter Date: 12/19/2021 Results Created Date Observation Date Name Description Value Unit Range Abnormal Flag Note LastModifiedBy Organization Detail LastModifiedTime 12/20/19 22 12/20/2021 LIPID PANEL WITH LDL/H DL RATIO cholesterol, total 199 mg/dL 100-19 9 Not Available [facility] ([facility]) [address] [place], [address], 12/20/2021 05:09:40 12/20/19 22 12/20/2021 LIPID PANEL WITH LDL/H DL RATIO triglyceride s 153 mg/dL 0-149 above high normal Not Available [facility] ([facility]) [address] [place], [address], 12/20/2021 05:09:40 12/20/19 22 12/20/2021 LIPID PANEL WITH LDL/H DL RATIO HDL cholesterol 37 mg/dL >39 below low normal Not Available [facility] ([facility]) [address] [place], [address], 12/20/2021 05:09:40 12/20/19 22 12/20/2021 LIPID PANEL WITH LDL/H DL RATIO VLDL cholesterol cori 28 mg/dL 5-40 Not Available [facility] ([facility]) [address] [place], [address], 12/20/2021 05:09:40 12/20/19 22 12/20/2021 LIPID PANEL WITH LDL/H DL RATIO LDL chol calc ([facility]) 134 mg/dL 0-99 above high normal Not Available [facility] ([facility]) [address] [place], [address], 12/20/2021 05:09:40 12/20/19 22 12/20/2021 LIPID PANEL WITH LDL/H DL RATIO LDL/HDL ratio 3.6 ratio 0.0-3. 2 above high normal LDL/H DL Ratio Men Women 1/2 Avg.R isk 1.0 1.5 Avg.R isk 3.6 3.2 2X Avg.R isk 6.2 5.0 3X Avg.R isk 8.0 6.1 Not Available [facility] ([facility]) [address] [place], [address], 12/20/2021 05:09:40 12/20/19 22 12/20/2021 COMP. METAB OLIC PANEL (14) glucose 89 mg/dL 65-99 Eff ectiv e Septe mber 2021 Gluco se refer ence* * inter gillian will be jean ing to: 70 - 99 Not Available [facility] ([facility]) [address] [place], [address], 12/20/2021 05:09:41 12/20/19 22 12/20/2021 COMP. METAB OLIC PANEL (14) BUN 10 mg/dL 6-24 Not Available [facility] ([facility]) [address] [place], [address], 12/20/2021 05:09:41 12/20/19 22 12/20/2021 COMP. METAB OLIC PANEL (14) creatinine 1.09 mg/dL 0.57-1 .00 above high normal Not Available [facility] ([facility]) [address] [place], [address], 12/20/2021 05:09:41 12/20/19 22 12/20/2021 COMP. METAB OLIC PANEL (14) eGFR 63 mL/mi n/1.7 3 >59 Not Available [facility] ([facility]) [address] [place], [address], 12/20/2021 05:09:41 12/20/19 22 12/20/2021 COMP. METAB OLIC PANEL (14) BUN/creatini ne ratio 9 9-23 Not Available [facility] ([facility]) [address] [facility] [place], [address], 12/20/2021 05:09:41 12/20/19 22 12/20/2021 COMP. METAB OLIC PANEL (14) sodium 144 mmol/ L 134-14 4 Not Available [facility] ([facility]) [address] [facility] [place], [address], 12/20/2021 05:09:41 12/20/19 22 12/20/2021 COMP. METAB OLIC PANEL (14) potassium 4.1 mmol/ L 3.5-5. 2 Not Available [facility] ([facility]) [address] [facility] [place], [address], 12/20/2021 05:09:41 12/20/19 22 12/20/2021 COMP. METAB OLIC PANEL (14) chloride 105 mmol/ L 96-106 Not Available [facility] ([facility]) [address] [facility] [place], [address], 12/20/2021 05:09:41 12/20/19 22 12/20/2021 COMP. METAB OLIC PANEL (14) carbon dioxide, total 24 mmol/ L 20-29 Not Available [facility] ([facility]) [address] [facility] [place], [address], 12/20/2021 05:09:41 12/20/19 22 12/20/2021 COMP. METAB OLIC PANEL (14) calcium 9.7 mg/dL 8.7-10 .2 Not Available [facility] ([facility]) [address] [facility] [place], [address], 12/20/2021 05:09:41 12/20/19 22 12/20/2021 COMP. METAB OLIC PANEL (14) protein, total 7.5 g/dL 6.0-8. 5 Not Available [facility] ([facility]) [address] [facility] [place], [address], 12/20/2021 05:09:41 12/20/19 22 12/20/2021 COMP. METAB OLIC PANEL (14) albumin 4.3 g/dL 3.8-4. 8 Not Available [facility] ([facility]) [address] [facility] [place], [address], 12/20/2021 05:09:41 12/20/19 22 12/20/2021 COMP. METAB OLIC PANEL (14) globulin, total 3.2 g/dL 1.5-4. 5 Not Available [facility] ([facility]) [address] [facility] [place], [address], 12/20/2021 05:09:41 12/20/19 22 12/20/2021 COMP. METAB OLIC PANEL (14) A/G ratio 1.3 1.2-2. 2 Not Available [facility] ([facility]) [address] [facility] [place], [address], 12/20/2021 05:09:41 12/20/19 22 12/20/2021 COMP. METAB OLIC PANEL (14) bilirubin, total 0.4 mg/dL 0.0-1. 2 Not Available [facility] ([facility]) [address] [place], [address], 12/20/2021 05:09:41 12/20/19 22 12/20/2021 COMP. METAB OLIC PANEL (14) alkaline phosphatase 95 IU/L 44-121 Not Available [facility] ([facility]) [address] [place], [address], 12/20/2021 05:09:41 12/20/19 22 12/20/2021 COMP. METAB OLIC PANEL (14) AST (SGOT) 16 IU/L 0-40 Not Available [facility] ([facility]) [address] [place], [address], 12/20/2021 05:09:41 12/20/19 22 12/20/2021 COMP. METAB OLIC PANEL (14) ALT (SGPT) 9 IU/L 0-32 Not Available [facility] ([facility]) [address] [facility], [place], [address], 12/20/2021 05:09:41 12/20/19 22 12/20/2021 CBC WITH DIFFE RENTI AL/PL ATELE T WBC 10.3 x10e3 /uL 3.4-10 .8 Not Available [facility] ([facility]) [address] [place], [address], 12/20/2021 05:09:41 12/20/19 22 12/20/2021 CBC WITH DIFFE RENTI AL/PL ATELE T RBC 4.49 x10e6 /uL 3.77-5 .28 Not Available [facility] ([facility]) [address] [facility], [place], [address], 12/20/2021 05:09:41 12/20/19 22 12/20/2021 CBC WITH DIFFE RENTI AL/PL ATELE T hemoglobin 14.1 g/dL 11.1-1 5.9 Not Available [facility] ([facility]) [address] [place], [address], 12/20/2021 05:09:41 12/20/19 22 12/20/2021 CBC WITH DIFFE RENTI AL/PL ATELE T hematocrit 42.6 % 34.0-4 6.6 Not Available [facility] ([facility]) [address] [place], [address], 12/20/2021 05:09:41 12/20/19 22 12/20/2021 CBC WITH DIFFE RENTI AL/PL ATELE T MCV 95 fL 79-97 Not Available [facility] ([facility]) [address] [place], [address], 12/20/2021 05:09:41 12/20/19 22 12/20/2021 CBC WITH DIFFE RENTI AL/PL ATELE T MCH 31.4 pg 26.6-3 3.0 Not Available [facility] ([facility]) [address] [facility], [place], [address], 12/20/2021 05:09:41 12/20/19 22 12/20/2021 CBC WITH DIFFE RENTI AL/PL ATELE T MCHC 33.1 g/dL 31.5-3 5.7 Not Available [facility] ([facility]) [address] [facility], [place], [address], 12/20/2021 05:09:41 12/20/19 22 12/20/2021 CBC WITH DIFFE RENTI AL/PL ATELE T RDW 11.6 % 11.7-1 5.4 below low normal Not Available [facility] ([facility]) [address] [facility], [place], [address], 12/20/2021 05:09:41 12/20/19 22 12/20/2021 CBC WITH DIFFE RENTI AL/PL ATELE T platelets 259 x10e3 /uL 150-45 0 Not Available [facility] ([facility]) [address] [place], [address], 12/20/2021 05:09:41 12/20/19 22 12/20/2021 CBC WITH DIFFE RENTI AL/PL ATELE T neutrophils 62 % notest ab. Not Available [facility] ([facility]) [address] [place], [address], 12/20/2021 05:09:41 12/20/19 22 12/20/2021 CBC WITH DIFFE RENTI AL/PL ATELE T lymphs 29 % notest ab. Not Available [facility] ([facility]) [address] [place], [address], 12/20/2021 05:09:41 12/20/19 22 12/20/2021 CBC WITH DIFFE RENTI AL/PL ATELE T monocytes 7 % notest ab. Not Available [facility] ([facility]) [address] [facility], [place], [address], 12/20/2021 05:09:41 12/20/19 22 12/20/2021 CBC WITH DIFFE RENTI AL/PL ATELE T eos 2 % notest ab. Not Available [facility] ([facility]) [address] [place], [address], 12/20/2021 05:09:41 12/20/19 22 12/20/2021 CBC WITH DIFFE RENTI AL/PL ATELE T basos 0 % notest ab. Not Available [facility] ([facility]) [address] [place], [address], 12/20/2021 05:09:41 12/20/19 22 12/20/2021 CBC WITH DIFFE RENTI AL/PL ATELE T neutrophils (absolute) 6.3 x10e3 /uL 1.4-7. 0 Not Available [facility] ([facility]) [address] [place], [address], 12/20/2021 05:09:41 12/20/19 22 12/20/2021 CBC WITH DIFFE RENTI AL/PL ATELE T lymphs (absolute) 2.9 x10e3 /uL 0.7-3. 1 Not Available [facility] ([facility]) [address] [place], [address], 12/20/2021 05:09:41 12/20/19 22 12/20/2021 CBC WITH DIFFE RENTI AL/PL ATELE T monocytes(ab solute) 0.8 x10e3 /uL 0.1-0. 9 Not Available [facility] ([facility]) [address] [place], [address], 12/20/2021 05:09:41 12/20/19 22 12/20/2021 CBC WITH DIFFE RENTI AL/PL ATELE T eos (absolute) 0.2 x10e3 /uL 0.0-0. 4 Not Available [facility] ([facility]) [address] [place], [address], 12/20/2021 05:09:41 12/20/19 22 12/20/2021 CBC WITH DIFFE RENTI AL/PL ATELE T baso (absolute) 0.0 x10e3 /uL 0.0-0. 2 Not Available [facility] ([facility]) [address] [place], [address], 12/20/2021 05:09:41 12/20/19 22 12/20/2021 CBC WITH DIFFE RENTI AL/PL ATELE T immature granulocytes 0 % notest ab. Not Available [facility] ([facility]) [address] [place], [address], 12/20/2021 05:09:41 12/20/19 22 12/20/2021 CBC WITH DIFFE RENTI AL/PL ATELE T immature grans (abs) 0.0 x10e3 /uL 0.0-0. 1 Not Available [facility] ([facility]) [address] [place], [address], 12/20/2021 05:09:41 12/20/19 22 12/20/2021 TSH+F REE T4 TSH 1.420 uIU/m L 0.450- 4.500 Not Available [facility] ([facility]) [address] [place], [address], 12/20/2021 05:09:44 12/20/19 22 12/20/2021 TSH+F REE T4 T4,free(dire ct) 1.38 NG/dL 0.82-1 .77 Not Available [facility] ([facility]) [address] [place], [address], 12/20/2021 05:09:44 12/20/19 22 12/20/2021 HEMOG LOBIN A1C hemoglobin A1C 5.1 % 4.8-5. 6 Predi abete s: 5.7 - 6.4 Diabe samanta: >6.4 Glyce delilah contr ol for adult s with diabe samanta: <7.0 Not Available [facility] ([facility]) [address] [facility], [place], [address], 12/20/2021 05:09:44 06/11/19 22 06/10/2021 XR, ankle , 3 or more view No observ ation record ed. [facility] (Imaging) [address] [place] [address] [address] [facility], [place], [address], 06/12/2021 12:04:42 06/11/19 22 06/10/2021 XR, elbow , 3 or more view No observ ation record ed. [address] [facility], [place], [address], 06/12/2021 12:04:43 09/30/19 22 09/29/2021 XR, wrist No observ ation record ed. [facility] (Imaging) [address] [place] [address] [address] [facility], [place], [address], 10/03/2021 14:28:03 09/30/19 22 09/29/2021 XR, wrist No observ ation record ed. [facility] (Imaging) [address] [place] [address] [address] [facility], [place], [address], 10/03/2021 14:27:13 11/22/19 22 11/21/2021 XR, cervi cori spine No observ ation record ed. [address], [place], [address], 11/21/2021 12:10:35 11/22/19 22 11/21/2021 XR, knee, 3 view No observ ation record ed. [facility] [address], [place], [address], 12/19/2021 17:09:13 12/17/19 22 12/15/2021 CT, brain , w/wo contr ast No observ ation record ed. [facility] [address], [place], [address], 12/17/2021 18:42:42 Result Notes None recorded. Problems Name Problem SNOMED Code Status Onset Date Resolution Date Notes Provider Name and Address Organization Details Recorded Time Fibromyalgia 435503025 Active 2019 BERTRAND VALDERRAMA Attn: Juana ye,[address] [facility], [place], [address], [place] [facility] 2 12:12:59 Neuropathy 060024331 Active 2019 BERTRAND VALDERRAMA Attn: Juana ye,[address] [facility], [place], [address], [place] [facility] 2 12:13:03 Spasm 11095139 Active 2019 Muscle Heather Castañeda MA null, [place] - [facility] 0 10:52:46 Chronic renal failure 13139885 Active 2019 BERTRAND VALDERRAMA Attn: Juana ye,[address] [facility], [place], [address], [place] [facility] 2 12:12:55 Essential hypertension 90808107 Active 2020 BERTRAND VALDERRAMA Attn: Juana ye,[address] [facility], [place], [address], [place] [facility] 1 15:11:33 Mixed anxiety and depressive disorder 957325882 Active 2021 BERTRAND VALDERRAMA Attn: Juana ye,[address] [facility], [place], [address], [place] [facility] 2 15:51:44 Notes:Walks when she falls E ffects right leg Problem Notes None recorded. Procedures Surgical History Date Name Laterality Status Provider Name and Address Organization Details Recorded Time 04/01/19 03 Date of Last Pap Smear completed Heathermicaela Castañeda MA [facility] 12/23/2019 10:53:56 04/01/19 03 Total hysterectomy completed Heather Castañeda MA [facility] 12/23/2019 10:53:18 Caesarean Section completed Heathermicaela Castañeda MA [facility] 12/23/2019 10:56:37 Caesarean Section completed Heather Castañeda MA [facility] 12/23/2019 10:56:37 Imaging Results Imaging Date Name Status LastModified by Organ atformerly [facility] Details LastModified Time 06/10/2021 XR, ankle, 3 or more view completed [facility] (Imaging) [address] [place] [address], [address], 06/12/2021 12:04:42 06/10/2021 XR, elbow, 3 or more view completed [address], [address], 06/12/2021 12:04:43 09/29/2021 [facility] [address] [place] [address], [address], 10/03/2021 14:28:03 09/29/2021 [facility] [address] [place] [address], [address], 10/03/2021 14:27:13 11/21/2021 XR, cervical spine completed [address], [address], 11/21/2021 12:10:35 11/21/2021 XR, knee, 3 view completed [address], [address], 12/19/2021 17:09:13 12/15/2021 CT, brain, w/wo contrast completed [facility] [address], [place], [address], 12/17/2021 18:42:42 Procedure Notes None recorded. Medical Equipment None Reported. Allergies Allergen ID Allergen Name Allergen Category Reaction Reaction Severity Criticality Documentation Date Start Date Code Code System Note Provider Name and Address Organization Details Recorded Time [id number] 2824e hydrocodo ne Not available Not available Not available Not available 12/23/2019 5489 RxNorm Not Available Not Available Not Available [id number] 2824e codeine medicatio n Not available Not available Not available 12/23/2019 2670 RxNorm Not Available Not Available Not Available Medications Name Sig Start Date Stop Date Status Note LastModified by Organization Details LastModified Time cyclobenzap rine 10 mg tablet TAKE 1 TABLET BY MOUTH TWICE DAILY NEEDED FOR MUSCLE SPASM active Not Available Not Available No t Available fluconazole 150 mg tablet TAKE 1 TABLET BY MOUTH A ONE TIME DOSE 03/09 completed Not Available Not Available Not Available meloxicam 15 mg tablet Take 1 tablet every day by oral route after meals. 07/29 completed Not Available Not Available Not Available tramadol 50 mg tablet 12/19 completed Not Available Not Available Not Available meclizine 25 mg tablet TAKE 1 TABLET BY MOUTH THREE TIMES DAILY 03/09 completed Not Available Not Available Not Available diazepam 2 mg tablet 12/22 completed Not Available Not Available Not Available phenazopyri dine 100 mg tablet TAKE 2 TABLETS BY MOUTH THREE TIMES DAILY FOR 2 DAYS 03/09 completed Not Available Not Available Not Available baclofen 10 mg tablet 12/22 completed Not Available Not Available Not Available fluoxetine 20 mg tablet TAKE 1 TABLET BY MOUTH ONCE DAILY DIRECTED FOR 30 DAYS active Not Available Not Available No t Available lisinopril 10 mg tablet Take 1 tablet by mouth once daily active Not Available Not Available No t Available gabapentin 100 mg capsule TAKE 1 CAPSULE BY MOUTH THREE TIMES DAILY 03/02 completed Not Available Not Available Not Available methylpredn isolone 4 mg tablets in a dose pack 05/17 completed Not Available Not Available Not Available oxybutynin chloride 5 mg tablet 12/22 completed Not Available Not Available Not Available loratadine 10 mg tablet 12/22 completed Not Available Not Available Not Available cyclobenzap rine 5 mg tablet Take 1 tablet 3 times a day by oral route as needed for 14 days. 11/22 completed Not Available Not Available Not Available nitrofurant oin monohydrate /macrocryst als 100 mg capsule TAKE 1 CAPSULE BY MOUTH EVERY 12 HOURS FOR 10 DAYS 03/09 completed Not Available Not Available Not Available Icy Hot 29 %-7.6 % topical ointment apply to right elbow 03/09 completed Not Available Not Available Not Available guaifenesin ER 600 mg tablet, extended release 12 hr Take 1 tablet every 12 hours by oral route as directed for 7 days. 05/17 completed Not Available Not Available Not Available Robitussin Cough-Chest Congestion DM 5 mg-100 mg/5 mL oral liquid TAKE DIRECTED X7 DAYS 05/17 completed Not Available Not Available Not Available Voltaren Arthritis Pain 1 % topical gel 06/23 completed Not Available Not Available Not Available Vitals Date Recorded Body height Provider Name an d Address Organization Details Last Updated DateTime 05/17/2021 144.78 cm Prudence Ceron [facility] 05/17/2021 14:22:49 Date Recorded Body mass index (BMI) Body weight Provider Name and Address Organization Details Last Updated DateTime 05/17/2021 47.2 kg/m2 16012.14 g Prudence Ceron [facility] 14:25:11 Date Recorded Oxygen saturation Oxygen saturation in Arterial blood by Pulse oximetry Provider Name and Address Organization Details Last Updated DateTime 05/17/2021 99 % 99 % Prudence Ceron [facility] 05/17 14:25:14 Date Recorded Heart rate Provider Name an d Address Organization Details Last Updated DateTime 05/17/2021 80 /min Prudence Ceron [facility] 05/17/2021 14:25:19 Date Recorded Body height Provider Name an d Address Organization Details Last Updated DateTime 06/23/2021 144.78 cm Honey Barksdale RN [facility] 06/23 11:48:11 Date Recorded Body mass index (BMI) Body weight Provider Name and Address Organization Details Last Updated DateTime 06/23/2021 46.4 kg/m2 54165.87 g Honey Barksdale RN [facility] 06/23/2021 11:48:49 Date Recorded Pain severity - 0-10 verbal numeric rating [Score] - Reported Provider Name and Address Organization Details Last Updated DateTime 06/23/2021 6 Honey Barksdale RN [facility] 06/23/2021 11:49:00 Date Recorded Respiratory rate Provider Name a nd Address Organization Details Last Updated DateTime 06/23/2021 16 /min Honey Barksdale RN [facility] 06/23/2021 11:49:04 Date Recorded Oxygen saturation Oxygen saturation in Arterial blood by Pulse oximetry Provider Name and Address Organization Details Last Updated DateTime 06/23/2021 99 % 99 % Honey Barksdale RN [facility] 06/23/2021 11:49:58 Date Recorded Heart rate Provider Name an d Address Organization Details Last Updated DateTime 06/23/2021 87 /min Honey Barksdale RN [facility] 06/23 11:50:00 Date Recorded Body temperature Provider Name a nd Address Organization Details Last Updated DateTime 06/23/2021 98.2 [degF] Honey Barksdale RN [facility] 06/23/2021 11:50:34 Date Recorded Body height Provider Name an d Address Organization Details Last Updated DateTime 09/29/2021 144.78 cm Keisha Gallegos [facility] 09/29/2021 15:31:01 Date Recorded Oxygen saturation Oxygen saturation in Arterial blood by Pulse oximetry Provider Name and Address Organization Details Last Updated DateTime 09/29/2021 98 % 98 % Keisha Gallegos [facility] 09/29/2021 15:36:04 Date Recorded Body temperature Provider Name a nd Address Organization Details Last Updated DateTime 09/29/2021 98.6 [degF] Keisha Gallegos [facility] 15:36:06 Date Recorded Heart rate Provider Name an d Address Organization Details Last Updated DateTime 09/29/2021 82 /min Keisha Gallegos [facility] 09/29/2021 15:36:08 Date Recorded Body height Provider Name an d Address Organization Details Last Updated DateTime 11/22/2021 144.78 cm Antoinette DongMOUSTAPHA [facility] 11/22/2021 11:55:55 Date Recorded Oxygen saturation Oxygen saturation in Arterial blood by Pulse oximetry Provider Name and Address Organization Details Last Updated DateTime 11/22/2021 97 % 97 % Antoinette Umana MA [facility] 11/22/2021 12:02:24 Date Recorded Heart rate Provider Name an d Address Organization Details Last Updated DateTime 11/22/2021 91 /min Antoinette Umana MA [facility] 11/22/2021 12:02:29 Date Recorded Body height Provider Name an d Address Organization Details Last Updated DateTime 12/19/2021 144.78 cm Allison Bray MA [facility] 10:14:34 Date Recorded Oxygen saturation Oxygen saturation in Arterial blood by Pulse oximetry Provider Name and Address Organization Details Last Updated DateTime 12/19/2021 96 % 96 % Allison Bray MA [facility] 12/19/2021 10:19:34 Date Recorded Heart rate Provider Name an d Address Organization Details Last Updated DateTime 12/19/2021 80 /min Allison Bray MA [facility] 10:19:37 Date Recorded Respiratory rate Provider Name a nd Address Organization Details Last Updated DateTime 12/19/2021 20 /min Allison Bray MA [facility] 022 10:19:39 Date Recorded Body mass index (BMI) Body weight Provider Name and Address Organization Details Last Updated DateTime 12/19/2021 46.2 kg/m2 01223.27 g Allison Bray MA [facility] 12/19/2021 10:19:45 Date Recorded Systolic blood pressure Diastolic blood pressure Provider Name and Address Organization Details Last Updated DateTime 05/17/2021 104 mm[Hg] 78 mm[Hg] Prudence Ceron [facility] 05/02 14:28:04 Date Recorded Systolic blood pressure Diastolic blood pressure Provider Name and Address Organization Details Last Updated DateTime 06/23/2021 110 mm[Hg] 82 mm[Hg] Honey Barksdale RN [facility] 06/23/2021 11:52:44 Date Recorded Systolic blood pressure Diastolic blood pressure Provider Name and Address Organization Details Last Updated DateTime 09/29/2021 120 mm[Hg] 78 mm[Hg] Keisha Wagnerarza [facility] 09/29/2021 15:37:23 Date Recorded Systolic blood pressure Diastolic blood pressure Provider Name and Address Organization Details Last Updated DateTime 11/22/2021 118 mm[Hg] 78 mm[Hg] Antoinette Umana MA [facility] 11/22/2021 12:02:22 Date Recorded Systolic blood pressure Diastolic blood pressure Provider Name and Address Organization Details Last Updated DateTime 12/19/2021 124 mm[Hg] 68 mm[Hg] Allison Bray MA [facility] 12/19/2021 10:19:32 Social History Question Answer Notes LastModified by Organizat ion Details LastModified Time Tobacco Smoking Status Former Smoker Quit 2004 Heather Castañeda MA null, [facility] 12/23/2019 10:55:35 Do You Have An Advance Directive? No Information not available 12/23/2019 What Is Your Level Of Alcohol Consumption? None Information not available 12/23/2019 Are You Blind Or Do You Have Difficulty Seeing? No Information not available 06/23/2021 What Is Your Level Of Caffeine Consumption? Moderate Information not available 12/23/2019 How Much Tobacco Do You Chew? None Information not available 12/23/2019 In The 14 Days Before Symptom Onset, Have You Had Close Contact With A Laboratory-confir med COVID-19 While That Case Was Ill? No Information not available 05/17/2021 In The 14 Days Before Symptom Onset, Have You Had Close Contact With A Person Who Is Under Investigation For COVID-19 While That Person Was Ill? No Information not available 05/17/2021 Have You Been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
--- OUTSIDE RECORDS SUMMARY | 2024-04-23 14:10 | XMS_ITS | Clinical Summary ---
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 Gender Identity Not on file Sexual Orientation Not on file Plan of Treatment Health Maintenance Due Date Last Done Comments Hepatitis C Virus (HCV) Screening 1974 TdaP Immunization 1974 Hepatitis B Immunization (1 of 3 - 19+ 3-dose series) 1993 Pap Smear 06/06/1995 Cervical Cancer Screening (CCS) 2004 HPV/Cotest 2004 Discussion re Starting/Frequency of Mammograms 2014 Colonoscopy 06/06/2019 Colorectal Cancer Screening 06/06/2019 Influenza Immunization (#1) 2023 SARS-COV-2 Immunization ( season) 2023 04/20/2021, 09/12/2020, 08/22/2020 Cologuard 2024 Immunochemical Fecal Occult Blood 2024 Respiratory Syncytial Virus (RSV) Immunization (Adult) (1 - 1-dose 75+ series) 2049 Meningococcal Immunization (ACWY) Aged Out No longer eligible b ased on patient's age to complete this topic Pneumococcal Immunization Combined Aged Out No longer eligible b ased on patient's age to complete this topic Rotavirus Immunization Aged Out No lo nger eligible based on patient's age to complete this topic Insurance MEDICAID [facility] Care Teams Showcase Trimmer Relationship Specialty Start Date End Date Anali Peguero, SALES AND DISTRIBUTION CLERK, [employer] [address] [place] [address] PCP - General Internal Medicine 08/28/17
== END 2024-04-20 19:14 | disposition home or self-care (01) ==
PROVIDERS: Registered Nurse; Emergency Provider Emergency Medicine
DX: J40 Bronchitis, not specified as acute or chronic (principal); Z20.822 Contact with and (suspected) exposure to COVID-19; I12.9 Hypertensive chronic kidney disease with stage 1 through stage 4 chronic kidney disease, or unspecified chronic kidney disease; N18.9 Chronic kidney disease, unspecified; Z85.43 Personal history of malignant neoplasm of ovary; Z90.710 Acquired absence of both cervix and uterus
CPT/HCPCS: 36415; 71275; 80053; 83735; 84484; 85025; 85610; 85730; 87637; 93005; 94640; 94664; 96374; 99284; J1100; J7512; Q9967